=== PATIENT | male | born 1935 | race Two or more races ===

== ENCOUNTER 2017-12-04 12:11 | Inpatient (IN) | payer MEDICARE ==
[~2017-12-04] VITALS: Ht 182.9 cm; Wt 74.5 kg
--- NOTE | 2017-12-04 12:38 | NUR ---
BIBRA FROM [facility] DT ELEVATED WBC AND LOW O2 SAT. PATIENT RECEIVED AWAKE, NON VERBAL, VENT/TRACHE DEPENDENT. SATING 100% WITH VENT ORDERED AND TOLERATED. PATIENT NOTED WITH GT. PATIENT NOTED WITH GENRALIZED SWELLING. PENDING MD CERVANTES
[2017-12-04 12:43] VITALS: BP 118/54
--- NOTE | 2017-12-04 12:47 | NUR ---
PT RECEIVED TRACHED ON PORTEX [facility] FROM [facility] RT. NO SIGNS OF RESP DISTRESS OR SOB NOTED. SXN'D SMALL AMOUNT OF PALE WHITE SECRETIONS. AIRWAY PATENT AND SECURED. TOP EXECUTIVE PRESSURE CUFF NOTED. AMBUBAG AT BEDSIDE. ALARMS SET AND AUDIBLE. VENT PLUG INTO RED. Addendum: 12/04/17 at 1250 by ALEXANDREA KEITH RT Amended: Links added.
--- NOTE | 2017-12-04 12:54 | NUR ---
CALLED PHARMACY FOR SILVIA
[2017-12-04] MEDS ORDERED: VANCOMYCIN 1 GM in IV D5W 250 ML IV ONE (13:00)
[2017-12-04] MEDS ORDERED: MEROPENEM 1,000 MG in IV NS 0.9% 100 ML IV ONE (13:00)
[2017-12-04] MEDS ORDERED: IV NS 0.9% 1,000 ML IV ONE (13:00)
[2017-12-04 13:03] LABS: BASOPHILS % (AUTO) 0.2 % (0.0-2.0); EOSINOPHILS % (AUTO) 0.2 % (0.0-6.0); HEMATOCRIT 25 % (39-51); HEMOGLOBIN 8.2 g/dL (13.5-17.5); LYMPHOCYTES # (AUTO) 1.1 /CMM (0.8-4.8); LYMPHOCYTES % (AUTO) 6.4 % (20.0-44.0); MEAN CORPUSCULAR HGB CONC 33 g/dl (31.0-36.0); MEAN CORPUSCULAR VOLUME 88 fL (80-96); MONOCYTES # (AUTO) 0.8 /CMM (0.1-1.30); MONOCYTES % (AUTO) 4.6 % (2.0-12.0); NEUTROPHILS # (AUTO) 15.5 /CMM (1.8-8.9); NEUTROPHILS % (AUTO) 88.6 % (43.0-81.0); PLATELET COUNT (AUTO) 164 /CMM (150-450); RDW COEFFICIENT OF VARIATION 20.1 (11.5-15.0); RED BLOOD CELL COUNT(AUTO) 2.85 MIL/uL (4.5-6.0); WHITE BLOOD COUNT (AUTO) 17.4 K/uL (4.3-11.0)
[2017-12-04 13:07] LABS: APPEARANCE,URINE Cloudy (CLEAR); BILIRUBIN,URINE Negative (NEGATIVE); BLOOD, URINE Moderate Ery/uL (NEGATIVE); COLOR,URINE Other (YELLOW); KETONES,URINE Negative (NEGATIVE); LEUKOCYTE ESTERASE ,URINE Large (NEGATIVE); NITRITE, URINE Negative (NEGATIVE); PROTEIN,URINE 100 mg/dl (NEGATIVE); UGLUCOSE Negative (NEGATIVE); UROBILINOGEN,URINE 0.2 EU/dL (0.2)
[2017-12-04 13:25] LABS: INR 1.37 (0.87-1.13)
[2017-12-04 13:28] LABS: ALANINE AMINOTRANSFERASE 19 U/L (12-78); ALKALINE PHOSPHATASE 519 U/L (46-116); ASPARTATE AMINOTRANSFERASE 234 U/L (15-37); BILIRUBIN,DIRECT 0.4 mg/dL (0.0-0.2); BILIRUBIN,TOTAL 0.7 mg/dL (0.2-1.0); CALCIUM, SERUM 6.6 mg/dL (8.5-10.1); CARBON DIOXIDE 27 mmol/L (21-32); CHLORIDE 108 mmol/L (98-107); GLUCOSE 105 mg/dL (74-106); POTASSIUM 3.7 mmol/L (3.5-5.1); SODIUM SERUM 144 mmol/L (136-145); TOTAL PROTEIN, SERUM 6.8 g/dL (6.4-8.2); UREA NITROGEN, BLOOD 61 mg/dL (7-18)
[2017-12-04 13:31] LABS: ALBUMIN 1.2 g/dL (3.4-5.0); BACTERIA,URINE 1+ /HPF (None Seen); SQUAMOUS EPITHELIAL CELL,UR Few /HPF (None Seen); TROPONIN I < 0.017 ng/mL (0.00-0.056); WBC,URINE TOO NUMEROUS TO COUN /HPF (0-3)
[2017-12-04] MEDS ORDERED: IV NS 0.9% 500 ML IV ONE (14:00)
[2017-12-04] MEDS ORDERED: CRAN3875 GT (14:03)
[2017-12-04] MEDS ORDERED: GLUC1KIT IM (14:03)
[2017-12-04] MEDS ORDERED: CALC-494 GT (14:03)
[2017-12-04] MEDS ORDERED: DOCU50LI GT (14:03)
[2017-12-04] MEDS ORDERED: FOLI1TAB16 GT (14:03)
[2017-12-04] MEDS ORDERED: INSU100V7 SQ (14:03)
[2017-12-04] MEDS ORDERED: LEVO100T9 GT (14:03)
[2017-12-04] MEDS ORDERED: MULT-213 GT (14:03)
[2017-12-04] MEDS ORDERED: LEUP7.5S2 IM (14:03)
[2017-12-04] MEDS ORDERED: PANT40SU2 GT (14:03)
[2017-12-04] MEDS ORDERED: ASCO500T9 GT (14:03)
[2017-12-04] MEDS ORDERED: BICA50TA49 GT (14:03)
[2017-12-04] MEDS ORDERED: ACET-73 GT (14:03)
[2017-12-04] MEDS ORDERED: HYDR-4354 GT (14:03)
[2017-12-04] MEDS ORDERED: ALBU2.5V11 NEB (14:03)
[2017-12-04] MEDS ORDERED: PYRI100T6 PO (14:03)
[2017-12-04] MEDS ORDERED: ACET325T53 GT ×2 (14:03)
[2017-12-04] MEDS ORDERED: FERR220S17 GT (14:03)
[2017-12-04] MEDS ORDERED: AMIN887L GT (14:03)
[2017-12-04] MEDS ORDERED: ALBU2.5V38 IH (14:03)
[2017-12-04] MEDS ORDERED: ONDANSETRON HCL/PF 4 MG/2 ML VIAL IVP PRN ×2 (14:30→15:30)
[2017-12-04] MEDS ORDERED: ACETAMINOPHEN 650 MG/SUPP.RECT RC PRN ×2 (14:30→15:30)
[2017-12-04] MEDS ORDERED: IPRATROPIUM NEB FS 0.5 MG/2.5 ML AMPUL.NEB NEB PRN ×2 (14:30→15:30)
[2017-12-04] MEDS ORDERED: ALBUTEROL FS 2.5 MG/3 ML VIAL.NEB NEB PRN ×2 (14:30→15:30)
--- NOTE | 2017-12-04 14:38 | NUR ---
CALLED NURSE SUP FOR TELE BED - NURSE SUP WILL CALL BACK
[2017-12-04 14:52] VITALS: BP 121/50
--- NOTE | 2017-12-04 14:54 | NUR ---
FIO2 TITRATED TO 40% BY RT.
[2017-12-04] MEDS ORDERED: DEXTROSE 50%-WATER 50 ML DISP.SYRIN IV PRN (15:00)
[2017-12-04] MEDS ORDERED: HYDROCODONE/APAP 10/325MG 1 EA TABLET GT PRN (15:00)
[2017-12-04] MEDS ORDERED: ACETAMINOPHEN 325 MG TABLET MC PRN ×3 (15:00→15:30)
[2017-12-04] MEDS ORDERED: INSULIN REGULAR, HUMAN 100 UNIT/ML 3 ML VIAL SQ PRN (15:00)
[2017-12-04] MEDS ORDERED: MISCELLANEOUS MED 1 EA EA GT PRN ×2 (15:00→15:30)
--- NOTE | 2017-12-04 15:14 | NUR ---
REPORT GIVEN TO TREY MANCERA FOR CONTINUITY OF CARE.
[2017-12-04] MEDS ORDERED: ACETAMINOPHEN 650 MG/20.3 ML UDC GT PRN (16:00)
[2017-12-04] MEDS ORDERED: PYRIDOXINE HCL 50 MG TABLET GT SCH (17:00)
[2017-12-04] MEDS ORDERED: FEE PK DOSING 1 MIN EA MC ONE (17:29)
[2017-12-04] MEDS: PYRIDOXINE HCL 50 MG TABLET GT SCH (17:31)
[2017-12-04] MEDS ORDERED: BLOOD SUGAR DIAGNOSTIC 1 EACH STRIP IN SCH (18:00)
[2017-12-04] MEDS: BLOOD SUGAR DIAGNOSTIC 1 EACH STRIP IN SCH ×2 (18:04→23:39)
--- NOTE | 2017-12-04 18:30 | NUR ---
RN NOTES RELAYED REPEAT LACTIC ACID RESULT TO ALFA HICKS, PER CORPORATE COUNSEL NO NEW ORDER AT THIS TIME.
--- NOTE | 2017-12-04 18:49 | NUR ---
RN NOTES PATIENT A/OX1, ABLE TO RESPOND TO QUESTION BY NODDING,MECHANICAL VENT SETTINGS TOLERATING WELL, SKIN ASSESSMENT COMPLETED, PHOTOS TAKEN AND PLACED IN CHART. NEEDS ATTENDED AND MET, CALL LIGHT WITHIN REACH, WILL ENDORSE TO PSYCHOLOGY PROFESSOR FOR JESSE.
[2017-12-04 20:00] VITALS: BP 116/50
[2017-12-04] MEDS: GLUCERNA 1.2 1,000 ML BOTTLE NG PRN (20:05)
[2017-12-04] MEDS ORDERED: MEROPENEM 1 G in IV NS 0.9% 100 ML IV SCH (21:00)
[2017-12-05] VITALS: BP 118/59
[2017-12-05] MEDS: MEROPENEM 1 G in IV NS 0.9% 100 ML IV SCH ×2 (00:56→13:05)
--- NOTE | 2017-12-05 01:16 | NUR ---
PATIENT WAS RECEIVED TRACHED ON PORTEX 7 ON MECHANICAL VENT . NO SIGNS OF RESP DISTRESS OR SOB NOTED. SXN'D SMALL AMOUNT OF PALE WHITE SECRETIONS. AIRWAY PATENT AND SECURED. DRY CLEANER PRESSURE CUFF NOTED. AMBUBAG AT BEDSIDE. ALARMS SET AND AUDIBLE. VENT PLUG INTO RED OUTLET WILL CONTINUE TO MO.NITOR Addendum: 12/05/17 at 0118 by SUBHASH SONG RT Amended: Links added.
[2017-12-05 04:00] VITALS: BP 117/56
--- NOTE | 2017-12-05 04:00 | NUR ---
TEMP AT 100.1 COOLING MEASURES PROVIDED WILL MONITOR
[2017-12-05] MEDS: BLOOD SUGAR DIAGNOSTIC 1 EACH STRIP IN SCH ×4 (05:44→23:28)
--- NOTE | 2017-12-05 06:37 | NUR ---
PUMP OPERATOR CLOSING NOTES ASLEEP AND EASILY OPENS EYES, STABLE, NOT IN DISTRESS. O2 SAT 100%. TOLERATING VENT ORDERED. NON VERBAL. RESPIRATION EVEN AND UNLABORED. KEPT CLEAN AND DRY AND COMFORTABLE, ALL NURSING CARE RENDERED. NEEDS ATTENDED AND ANTICIPATED. REPOSITIONED EVERY 2 HOURS. GOOD SKIN CARE PROVIDED. NO FACIAL GRIMACING NOTED. ON LOW BED AT ALL TIMES TO ENSURE SAFETY. SAFE HAZARD FREE ENVIRONMENT PROVIDED. CALL LIGHT WITHIN EASY TO REACH. WILL ENDORSE NEXT SHIFT CONTINUITY OF CARE.
[2017-12-05 07:48] LABS: CALCIUM, SERUM 6.7 mg/dL (8.5-10.1); CARBON DIOXIDE 28 mmol/L (21-32); CHLORIDE 110 mmol/L (98-107); CREATININE 1.8 mg/dL (0.6-1.3); GLUCOSE 99 mg/dL (74-106); POTASSIUM 3.7 mmol/L (3.5-5.1); SODIUM SERUM 148 mmol/L (136-145); UREA NITROGEN, BLOOD 53 mg/dL (7-18)
--- NOTE | 2017-12-05 08:00 | NUR ---
MS RN RECEIVED ON BED, AWAKE,NON VERBAL PATIENT, VENT DEPENDENT PATIENT, NOTED TO HAVE ENAMORADO CATHETER W/ YELLOWISH URINE OUTPUT,G TUBE FEEDING AT 30ML / HOUR, TOLERATED WELL.
[2017-12-05] MEDS ORDERED: CALCIUM CARB 250MG /VITAMIN D 1 UDTAB GT SCH (09:00)
[2017-12-05] MEDS ORDERED: ASCORBIC ACID 500 MG TABLET GT SCH (09:00)
[2017-12-05] MEDS ORDERED: MULTIVITAMIN LIQ 5 ML UDC GT SCH (09:00)
[2017-12-05] MEDS: BICALUTAMIDE 50 MG TABLET GT SCH (09:00)
[2017-12-05] MEDS ORDERED: FOLIC ACID 1 MG TABLET GT SCH (09:00)
[2017-12-05] MEDS ORDERED: BICALUTAMIDE 50 MG TABLET GT SCH (09:00)
[2017-12-05] MEDS ORDERED: PANTOPRAZOLE 40 MG VIAL IV SCH (09:00)
[2017-12-05] MEDS ORDERED: FERROUS SULFATE UDC 300 MG/5 ML UDC GT SCH (09:00)
[2017-12-05] MEDS ORDERED: PROSOURCE / PROSTAT (PYXIS) 30 ML UDC GT SCH (09:00)
[2017-12-05] MEDS ORDERED: LEVOTHYROXINE SODIUM 100 MCG TABLET GT SCH (09:00)
[2017-12-05] MEDS ORDERED: DOCUSATE SODIUM LIQ 100 MG/10 ML UDC GT SCH (09:00)
[2017-12-05] MEDS: FOLIC ACID 1 MG TABLET GT SCH (09:36)
[2017-12-05] MEDS: PYRIDOXINE HCL 50 MG TABLET GT SCH ×3 (09:37→17:43)
[2017-12-05] MEDS: PANTOPRAZOLE 40 MG VIAL IV SCH (09:37)
[2017-12-05] MEDS: CALCIUM CARB 250MG /VITAMIN D 1 UDTAB GT SCH (09:37)
[2017-12-05] MEDS: ASCORBIC ACID 500 MG TABLET GT SCH (09:37)
[2017-12-05] MEDS: MULTIVITAMINS,THERAGRAN 1 UDTAB TABLET GT SCH (09:37)
[2017-12-05] MEDS: DOCUSATE SODIUM LIQ 100 MG/10 ML UDC GT SCH ×2 (09:37→09:47)
[2017-12-05] MEDS: LEVOTHYROXINE SODIUM 100 MCG TABLET GT SCH (09:40)
--- NOTE | 2017-12-05 09:40 | NUR ---
MS RN DUE MEDS GIVEN.TOLERATED WELL.
[2017-12-05 12:00] VITALS: BP 118/47
[2017-12-05] MEDS: VANCOMYCIN 1 GM in IV D5W 250 ML IV SCH (13:05)
--- NOTE | 2017-12-05 14:00 | NUR ---
MS RN WAS SEEN BY ZAMZAM TORRES SURGERY, WAS ABLE TO SEE WOUNDS, NO ORDER AT THIS TIME.
[2017-12-05 16:00] VITALS: BP 128/51
[2017-12-05] MEDS: FERROUS SULFATE UDC 300 MG/5 ML UDC GT SCH (17:43)
[2017-12-05] MEDS: PROSOURCE / PROSTAT (PYXIS) 30 ML UDC GT SCH (17:44)
--- NOTE | 2017-12-05 18:08 | NUR ---
RT NOTE PATIENT WAS RECEIVED ON MECHANICAL VENT WITH NOTED SETTINGS. BREATHING TX GIVEN PER MD ORDER. NO ADVERSE REACTION NOTED. SX DONE WITH MODERATE AMOUNT OF THICK YELLOW SECRETIONS. TRACH TUBE PATENT AND SECURED. MECHANICAL ENGINEERING MANAGER DONE. AMBU BAG AT BEDSIDE. VENT PLUGGED INTO RED OUTLET. ALARMS ARE ON AND AUDIBLE. WILL CONTINUE TO MONITOR
--- NOTE | 2017-12-05 18:30 | NUR ---
ms rn gt feeding rate increased to 40ml/hr w/ a goal of 80ml/hr.tolerated well.
--- NOTE | 2017-12-05 19:25 | NUR ---
HOMEMAKER COMPANION NOTES RECEIVED PT IN BED, RESTING AT THIS TIME, APPEARS COMFORTABLE. OPENS EYES, NON VERBAL . TRACH WITH VENT INTACT AND PATENT, SUCTIONED PRN. NO DISTRESS, NO SOB NOTED. RESPIRATION EVEN AND UNLABORED. KEPT CLEAN AND DRY. NEEDS ATTENDED AND ANTICIPATED. REPOSITIONED EVERY 2 HOURS. GOOD SKIN CARE PROVIDED. NO S/S OF PAIN OR DISCOMFORT NOTED. GT IS INTACT AND PATENT, WITH RESIDUAL OF 40 CC NOTED. GTF INFUSING WELL. IV SITE ON RIGHT WRIST AND LFA INTACT AND PATENT, NO INFILTRATION NOTED. FC INTACT AND PATENT , DRAINING WELL. SAFETY AND ASPIRATION PRECAUTION OBSERVED. CALL LIGHT WITHIN EASY TO REACH. WILL CONT TO MONITOR.
--- NOTE | 2017-12-05 19:28 | NUR ---
PT ON ST 105 ON TELE MONITOR.
[2017-12-05 20:00] VITALS: BP 110/54
[2017-12-05 20:10] VITALS: BP 110/54
[2017-12-05] MEDS: GLUCERNA 1.2 1,000 ML BOTTLE NG PRN (22:41)
[2017-12-05] MEDS: INSULIN REGULAR, HUMAN 100 UNIT/ML 3 ML VIAL SQ PRN (23:33)
[2017-12-06 00:39] VITALS: BP 114/48
[2017-12-06] MEDS: MEROPENEM 1 G in IV NS 0.9% 100 ML IV SCH ×2 (01:48→12:44)
[2017-12-06 04:00] VITALS: BP 114/53
[2017-12-06] MEDS: BLOOD SUGAR DIAGNOSTIC 1 EACH STRIP IN SCH ×3 (05:44→18:38)
--- NOTE | 2017-12-06 06:34 | NUR ---
wound tx : medi honey not available at this time.
--- NOTE | 2017-12-06 06:50 | NUR ---
WATCH ASSEMBLY INSTRUCTOR CLOSING NOTES PT IN BED, RESTING AT THIS TIME, APPEARS COMFORTABLE. OPENS EYES, NON VERBAL . TRACH WITH VENT INTACT AND PATENT, SUCTIONED PRN. NO DISTRESS, NO SOB NOTED. RESPIRATION EVEN AND UNLABORED. KEPT CLEAN AND DRY. NEEDS ATTENDED AND ANTICIPATED. REPOSITIONED EVERY 2 HOURS. GOOD SKIN CARE PROVIDED. NO S/S OF PAIN OR DISCOMFORT NOTED. GT IS INTACT AND PATENT, GTF MIKE WELL. IV SITE ON RIGHT WRIST AND LFA INTACT AND PATENT, NO INFILTRATION NOTED. FC INTACT AND PATENT , DRAINING WELL. SAFETY AND ASPIRATION PRECAUTION OBSERVED. CALL LIGHT WITHIN EASY TO REACH. RECEIVED A CALL FROM PT SON'S ( GERRI ) WITH REQUEST TO INFORM HIM IF THERE'S ANY PROCEDURE THAT NEEDS TO BE DONE TO THE PT, CHARGE NURSE MADE AWARE, AND WILL ENDORSE TO NEXT SHIFT ACCORDINGLY. ALL NEEDS ANTICIPATED AND ATTENDED. CALL LIGHT WITHIN REACH. WILL CONT TO MONITOR.
--- NOTE | 2017-12-06 07:00 | NUR ---
PERFORATOR CLOSING NOTES PATIENT IN BED, LYING IN BED, HOB ELEVATED, APPEARS COMFORTABLE. OPENS EYES, NON VERBAL . TRACH WITH VENT INTACT AND PATENT. NO DISTRESS, NO SOB NOTED. RESPIRATION EVEN AND UNLABORED. NO S/S OF PAIN OR DISCOMFORT NOTED. GT IS INTACT AND PATENT, GTF TOLERATING WELL. IV ACCESS PATENT AND INTACT, NO REDNESS OR SWELLING NOTED. ENAMORADO CATHETER INTACT AND PATENT , DRAINING WELL. SAFETY AND ASPIRATION PRECAUTION OBSERVED. CALL LIGHT WITHIN EASY TO REACH. SAFETY MEASURE IN PLACE. CALL LIGHT WITHIN REACH. WILL CONTINUE TO MONITOR ACCORDINGLY.
[2017-12-06 07:33] LABS: CALCIUM, SERUM 6.7 mg/dL (8.5-10.1); CARBON DIOXIDE 27 mmol/L (21-32); CHLORIDE 111 mmol/L (98-107); CREATININE 1.7 mg/dL (0.6-1.3); GLUCOSE 136 mg/dL (74-106); POTASSIUM 3.6 mmol/L (3.5-5.1); SODIUM SERUM 149 mmol/L (136-145); UREA NITROGEN, BLOOD 59 mg/dL (7-18)
[2017-12-06 08:00] VITALS: BP 116/50
[2017-12-06] MEDS: LEVOTHYROXINE SODIUM 100 MCG TABLET GT SCH (08:29)
[2017-12-06] MEDS: FOLIC ACID 1 MG TABLET GT SCH (08:30)
[2017-12-06] MEDS: MULTIVITAMINS,THERAGRAN 1 UDTAB TABLET GT SCH (08:30)
[2017-12-06] MEDS: PANTOPRAZOLE 40 MG VIAL IV SCH (08:30)
[2017-12-06] MEDS: ASCORBIC ACID 500 MG TABLET GT SCH (08:30)
[2017-12-06] MEDS: CALCIUM CARB 250MG /VITAMIN D 1 UDTAB GT SCH (08:30)
[2017-12-06] MEDS: FERROUS SULFATE UDC 300 MG/5 ML UDC GT SCH (08:30)
[2017-12-06] MEDS: PROSOURCE / PROSTAT (PYXIS) 30 ML UDC GT SCH (08:31)
[2017-12-06] MEDS: PYRIDOXINE HCL 50 MG TABLET GT SCH ×3 (08:31→17:43)
[2017-12-06] MEDS: BICALUTAMIDE 50 MG TABLET GT SCH (09:18)
--- NOTE | 2017-12-06 11:00 | NUR ---
SILVERER NOTES DR LEÓN MADE AWARE OF THE CHEST XRAY RESULT,NO NEW ORDERS MADE AT THIS TIME.
--- NOTE | 2017-12-06 11:04 | NUR ---
WOUND CARE CONSULT: PT PRESENTS WITH UNSTAGEABLE SACRAL ULCER AND PENIS WOUND, PRESENT ON ADMISSION. PT FOLLOWED BY SURGICAL TEAM FOR WOUNDS. DEFER TO SURGICAL TEAM FOR WOUND TREATMENT PLAN. PT ON FIRST STEP CIRRUS LOW AIRLOSS MATTRESS. ALL SKIN PROTECTION MEASURES IN PLACE AND DISCUSSED WITH NURSING STAFF. WILL SEE PRN. MILLIGAN IN AGREEMENT WITH PLAN OF CARE.
[2017-12-06 12:00] VITALS: BP 114/47
[2017-12-06] MEDS: INSULIN REGULAR, HUMAN 100 UNIT/ML 3 ML VIAL SQ PRN (12:18)
[2017-12-06] MEDS: THERAHONEY GEL 1.5 OZ TUBE TP SCH (13:09)
[2017-12-06] MEDS: Z GUARD REMEDY 2 OZ OINT TP SCH (13:10)
[2017-12-06 13:14] LABS: HEMATOCRIT 24 % (39-51); HEMOGLOBIN 7.3 g/dL (13.5-17.5); MEAN CORPUSCULAR HGB CONC 30 g/dl (31.0-36.0); MEAN CORPUSCULAR VOLUME 92 fL (80-96); PLATELET COUNT (AUTO) 126 /CMM (150-450); RDW COEFFICIENT OF VARIATION 23.5 (11.5-15.0); RED BLOOD CELL COUNT(AUTO) 2.65 MIL/uL (4.5-6.0); WHITE BLOOD COUNT (AUTO) 16.6 K/uL (4.3-11.0)
[2017-12-06] MEDS: VANCOMYCIN 1 GM in IV D5W 250 ML IV SCH (13:26)
[2017-12-06] MEDS ORDERED: BUMETANIDE INJ 4 MG in IV D5W 24 ML IV ONE (13:30)
[2017-12-06 13:43] LABS: BAND % (MANUAL) 5 % (0.0-5.0); LYMPHOCYTES % (MANUAL) 10 % (16-48); MONOCYTES % (MANUAL) 4 % (0-11.0); NEUTROPHILS % (MANUAL) 81 (42-76)
[2017-12-06 14:52] LABS: ABG BASE EXCESS 0.7 mmol/L; ABG OXYGEN SATURATION 91.9 % (92.0-98.5); ABG PCO2 50.6 mmHg (35.0-45.0); ABG PO2 70.4 mmHg (75.0-100.0); AaDO2 156.6 mmHg; COHb 0.1 % (0.5-1.5); MetHb 0.9 % (0.0-1.5); PEEP,BG 5 cm H2O; SITE, ABG Right Radial; VT, ABG 480 mL
[2017-12-06 16:00] VITALS: BP 111/50
--- NOTE | 2017-12-06 19:00 | NUR ---
HR DIRECTOR CLOSING NOTES PATIENT IN BED, LYING IN BED, HOB ELEVATED, APPEARS COMFORTABLE. OPENS EYES, NON VERBAL . TRACH WITH VENT INTACT AND PATENT. NO DISTRESS, NO SOB NOTED. RESPIRATION EVEN AND UNLABORED. NO S/S OF PAIN OR DISCOMFORT NOTED. GT IS INTACT AND PATENT, GTF TOLERATING WELL. IV ACCESS PATENT AND INTACT, NO REDNESS OR SWELLING NOTED. ENAMORADO CATHETER INTACT AND PATENT , DRAINING WELL.DUE MEDICATIONS GIVEN, NO ASE NOTED. NEEDS ATTENDED AND ANTICIPATED. SAFETY AND ASPIRATION PRECAUTION OBSERVED. CALL LIGHT WITHIN EASY TO REACH. SAFETY MEASURE IN PLACE. CALL LIGHT WITHIN REACH. DR LEÓN REQUESTING RECENT CHEST XRAY FROM [facility], CALLED AND SPOKE WITH BARBARA NO RECENT CXR AVAILABLE. ENDORSED TO NIGHT NURSE FOR CONTINUITY OF CARE.
--- NOTE | 2017-12-06 19:05 | NUR ---
BASIC SCIENCES PROFESSOR NOTES RECEIVED PT IN BED, RESTING AT THIS TIME, APPEARS COMFORTABLE, AROUSABLE, OPENS EYES AND MAKES EYE CONTACT. NON VERBAL . TRACH WITH VENT INTACT AND PATENT, SUCTIONED PRN. NO DISTRESS, NO SOB NOTED. RESPIRATION IS EVEN AND UNLABORED. KEPT CLEAN AND DRY. NEEDS ATTENDED AND ANTICIPATED. GOOD SKIN CARE PROVIDED. NO S/S OF PAIN OR DISCOMFORT NOTED. GT IS INTACT AND PATENT, GTF MIKE WELL. IV SITE ON RIGHT WRIST AND LFA INTACT AND PATENT, NO INFILTRATION NOTED. FC INTACT AND PATENT , DRAINING WELL. SAFETY AND ASPIRATION PRECAUTION OBSERVED. CALL LIGHT WITHIN EASY TO REACH. WILL CONT TO MONITOR.
--- NOTE | 2017-12-06 19:15 | NUR ---
PT ON SR 95 ON TELE MONITOR.
[2017-12-06 20:00] VITALS: BP 122/58
--- NOTE | 2017-12-06 21:48 | NUR ---
PATIENT WAS RECEIVED ON MECHANICAL VENT WITH NOTED SETTINGS. SUCTION DONE WITH A SMALL AMOUNT OF THIN YELLOW SECRETIONS. TRACH TUBE PATENT AND SECURED. RECEPTIONIST SECRETARY DONE. AMBU BAG AT BEDSIDE. VENT PLUGGED INTO RED OUTLET. ALARMS ARE ON AND AUDIBLE. WILL CONTINUE TO MONITOR Addendum: 12/06/17 at 2158 by SUBHASH SONG RT Amended: Links added.
[2017-12-06] MEDS: GLUCERNA 1.2 1,000 ML BOTTLE NG PRN (22:54)
[2017-12-07] VITALS: BP 122/47
[2017-12-07] MEDS: BLOOD SUGAR DIAGNOSTIC 1 EACH STRIP IN SCH ×4 (00:16→17:11)
[2017-12-07] MEDS: MEROPENEM 1 G in IV NS 0.9% 100 ML IV SCH ×2 (00:25→13:38)
[2017-12-07 04:00] VITALS: BP 115/53
[2017-12-07] MEDS: INSULIN REGULAR, HUMAN 100 UNIT/ML 3 ML VIAL SQ PRN ×3 (06:26→17:11)
--- NOTE | 2017-12-07 06:30 | NUR ---
DOUGH SCALER AND MIXER CLOSING NOTES PT IN BED, RESTING AT THIS TIME, APPEARS COMFORTABLE, AROUSABLE, NON VERBAL . TRACH WITH VENT INTACT AND PATENT, SUCTIONED PRN. NO DISTRESS, NO SOB NOTED. RESPIRATION IS EVEN AND UNLABORED. KEPT CLEAN AND DRY. NEEDS ATTENDED AND ANTICIPATED. GOOD SKIN CARE PROVIDED. NO S/S OF PAIN OR DISCOMFORT NOTED. GT IS INTACT AND PATENT, GTF MIKE WELL. IV SITE ON RIGHT WRIST AND LFA INTACT AND PATENT, NO INFILTRATION NOTED. FC INTACT AND PATENT , DRAINING WELL. SAFETY AND ASPIRATION PRECAUTION OBSERVED. WOUND TX DONE ORDERED. CALL LIGHT WITHIN EASY TO REACH. WILL ENDORSE TO NEXT SHIFT ACCORDINGLY FOR JESSE
--- NOTE | 2017-12-07 07:05 | NUR ---
MARKETING OFFICER CLOSING NOTES PATIENT LYING IN BED, HOB ELEVATED, APPEARS COMFORTABLE. OPENS EYES, NODS HEAD TO ANSWER. NON VERBAL . TRACH WITH VENT INTACT AND PATENT. NO ACUTE DISTRESS NOTED, NO SOB NOTED. RESPIRATION EVEN AND UNLABORED. NO S/S OF PAIN OR DISCOMFORT NOTED. GT IS INTACT AND PATENT, GTF TOLERATING WELL. IV ACCESS PATENT AND INTACT, NO REDNESS OR SWELLING NOTED. ENAMORADO CATHETER INTACT AND PATENT , DRAINING WELL. SAFETY AND ASPIRATION PRECAUTION OBSERVED. CALL LIGHT WITHIN REACH. CALL LIGHT WITHIN REACH. WILL CONTINUE TO MONITOR ACCORDINGLY.
[2017-12-07 08:00] VITALS: BP 145/57
[2017-12-07] MEDS: MULTIVITAMINS,THERAGRAN 1 UDTAB TABLET GT SCH (08:24)
[2017-12-07] MEDS: LEVOTHYROXINE SODIUM 100 MCG TABLET GT SCH (08:24)
[2017-12-07] MEDS: ASCORBIC ACID 500 MG TABLET GT SCH (08:24)
[2017-12-07] MEDS: BICALUTAMIDE 50 MG TABLET GT SCH (08:24)
[2017-12-07] MEDS: CALCIUM CARB 250MG /VITAMIN D 1 UDTAB GT SCH (08:24)
[2017-12-07] MEDS: DOCUSATE SODIUM LIQ 100 MG/10 ML UDC GT SCH (08:24)
[2017-12-07] MEDS: PYRIDOXINE HCL 50 MG TABLET GT SCH ×3 (08:24→16:30)
[2017-12-07] MEDS: FOLIC ACID 1 MG TABLET GT SCH (08:24)
[2017-12-07] MEDS: PANTOPRAZOLE 40 MG VIAL IV SCH (08:24)
[2017-12-07] MEDS: Z GUARD REMEDY 2 OZ OINT TP SCH (08:25)
[2017-12-07] MEDS: THERAHONEY GEL 1.5 OZ TUBE TP SCH (08:25)
[2017-12-07] MEDS: PROSOURCE / PROSTAT (PYXIS) 30 ML UDC GT SCH (08:26)
[2017-12-07 08:33] LABS: HEMATOCRIT 23 % (39-51); HEMOGLOBIN 7.3 g/dL (13.5-17.5); MEAN CORPUSCULAR HGB CONC 31 g/dl (31.0-36.0); MEAN CORPUSCULAR VOLUME 91 fL (80-96); PLATELET COUNT (AUTO) 126 /CMM (150-450); RDW COEFFICIENT OF VARIATION 23.5 (11.5-15.0); RED BLOOD CELL COUNT(AUTO) 2.55 MIL/uL (4.5-6.0); WHITE BLOOD COUNT (AUTO) 16.6 K/uL (4.3-11.0)
[2017-12-07 08:34] LABS: CARBON DIOXIDE 26 mmol/L (21-32); CHLORIDE 111 mmol/L (98-107); CREATININE 1.7 mg/dL (0.6-1.3); GLUCOSE 141 mg/dL (74-106); POTASSIUM 3.1 mmol/L (3.5-5.1); SODIUM SERUM 150 mmol/L (136-145); UREA NITROGEN, BLOOD 60 mg/dL (7-18)
[2017-12-07] MEDS: FERROUS SULFATE UDC 300 MG/5 ML UDC GT SCH (09:02)
[2017-12-07 09:08] LABS: THYROID STIMULATING HORMONE 23.136 uIU/mL (0.358-3.74)
[2017-12-07 09:20] LABS: BAND % (MANUAL) 1 % (0.0-5.0); EOSINOPHILS % (MANUAL) 2 % (0-4); LYMPHOCYTES % (MANUAL) 6 % (16-48); MONOCYTES % (MANUAL) 6 % (0-11.0); NEUTROPHILS % (MANUAL) 85 (42-76)
[2017-12-07] MEDS ORDERED: POTASSIUM CHLORIDE 20 MEQ POWDER PACKET GT SCH (11:30)
[2017-12-07 11:38] LABS: ABG BASE EXCESS -0.3 mmol/L; ABG OXYGEN SATURATION 81.2 % (92.0-98.5); ABG PCO2 44.4 mmHg (35.0-45.0); ABG PO2 51.3 mmHg (75.0-100.0); AaDO2 182.8 mmHg; COHb 0.1 % (0.5-1.5); MetHb 0.8 % (0.0-1.5); O2Hb 80.5 % (94.0-97.0); PEEP,BG 5 cm H2O; SITE, ABG Left Radial; VT, ABG 550 mL
--- NOTE | 2017-12-07 11:42 | NUR ---
ELECTRIC ORGAN ASSEMBLER NOTES RECEIVED ABG RESULT , NOTIFIED MELISSA HICKS WITH ORDERS TO TRANSFER [facility], NOTED AND CARRIED OUT.
--- NOTE | 2017-12-07 11:42 | NUR ---
KNITTING MACHINE OPERATOR AUTOMATIC NOTES PATIENT DESATURATING TO 85-87% NOTIFIED RT, RT CAME DEEP SUCTIONIONING DONE. NOTIFIED AUTHORIZATION REP ALFA HICKS ORDERED STAT ABG, NOTED AND CARRIED OUT.
--- NOTE | 2017-12-07 11:59 | NUR ---
BRIQUETTE OPERATOR NOTES PATIENT TRANSFER TO [facility], RT PAUL PRESENT, ACLS PROTOCOL OBSERVED. PATIENT PLACED ON INSURANCE CLAIMS SUPERVISOR. REPORT GIVEN TO GIOVANNY YANG. CONTINUE WITH VENT/TRACH. CONTINUE GTF TOLERATED PER ORDER. ENAMORADO CATHETER IN PLACE. PER ALFA HICKS NP HE WILL CONTACT SON. PATIENT REMAINS IN STABLE CONDITION DURING TRANSFER.
--- NOTE | 2017-12-07 12:00 | NUR ---
[facility] RN NOTES RECEIVED PT FROM [facility] , ALERT/ NON VERBAL ,OEPNS EYS TO VERBAL STIMULI , TRACH CARE DONE, RESPIRATION EVEN AND UNLABORED, NO SOB NOTED AT THIS TIME , VENT/ TRACH DEPENDENT, TOLEAING VENT SETTING WELL AT THIS TIME, NO S/S OF PAIN OR DISCOMFORT NOTED.TF RESTARTED . HOB ELEVATED, IV ACCESS PATENT AND INTACT, NO REDNESS OR SWELLING NOTED. ENAMORADO CATHETER DRAINING TO GRAVITY. CALL LIGHT WITHIN REACH. BED LOCKED AND IN LOWEST POSITION, CALL LIGHT WITHIN REACH. WILL CONTINUE TO MONITOR [place] .
[2017-12-07 12:48] VITALS: BP 135/56
[2017-12-07] MEDS ORDERED: BUMETANIDE INJ 4 MG in IV NS 0.9% 24 ML IV ONE (13:30)
[2017-12-07] MEDS: VANCOMYCIN 1 GM in IV D5W 250 ML IV SCH (14:07)
[2017-12-07 16:00] VITALS: BP_SYST 129; BP_DIAS 52; BP_DIAS 53
--- NOTE | 2017-12-07 20:00 | NUR ---
RN INITIAL NOTES RECEIVED PT IN BED, NON VERBAL . TRACH WITH VENT INTACT AND PATENT. NO DISTRESS, NO SOB NOTED. RESPIRATION IS EVEN AND UNLABORED. KEPT CLEAN AND DRY. NO S/S OF PAIN OR DISCOMFORT NOTED. GT IS INTACT AND PATENT WITH. IV SITE ON RIGHT WRIST AND LFA INTACT AND PATENT, NO INFILTRATION NOTED. FC INTACT AND PATENT , DRAINING WELL. SAFETY AND ASPIRATION PRECAUTION OBSERVED. CALL LIGHT WITHIN EASY TO REACH. WILL CONT TO MONITOR.
[2017-12-07 21:00] VITALS: BP 132/60
--- NOTE | 2017-12-07 21:11 | NUR ---
PT RCVD TRACH'D ON MECHANICAL VENT WITH CHARTED SETTINGS. PT TOLERATING SETTINGS WELL AT THIS TIME. SX DONE. PT TRACH PATENT AND SECURE. AMBU BAG AT BEDSIDE. VENT PLUGGED INTO RED OUTLET. ALARMS ARE ON AND AUDIBLE. WILL CONTINUE TO MONITOR. Addendum: 12/07/17 at 2112 by JAROD PABLO RT Amended: Links added.
[2017-12-08] VITALS (7 sets, daily range): BP systolic 113–125; BP diastolic 32–57
[2017-12-08] MEDS: MEROPENEM 1 G in IV NS 0.9% 100 ML IV SCH ×2 (00:23→12:57)
[2017-12-08] MEDS: BLOOD SUGAR DIAGNOSTIC 1 EACH STRIP IN SCH ×4 (00:28→17:17)
--- NOTE | 2017-12-08 08:00 | NUR ---
[facility] RN NOTE RECEIVED PATIENT IN BED WITH TRACH TO VENT SETTING ORDERED. NO SHORTNESS OF BREATH NOTED AT THI TIME . ON TELE MONITOR .SINUS TACHY HR 111 ,WITH F/C TO GRAVITY PATIENT HAS A G-TUBE NOTED ,NO RESIDUAL NOTED ,HEAD OF BED ELEVATED, BED IN LOW AND LOCKED POSITION BOTH HANDS WITH EDEMA KEEP ELEVATED TOLERATED
[2017-12-08] MEDS: BICALUTAMIDE 50 MG TABLET GT SCH (08:41)
[2017-12-08] MEDS: MULTIVITAMINS,THERAGRAN 1 UDTAB TABLET GT SCH (08:42)
[2017-12-08] MEDS: ASCORBIC ACID 500 MG TABLET GT SCH (08:42)
[2017-12-08] MEDS: PYRIDOXINE HCL 50 MG TABLET GT SCH ×3 (08:42→16:23)
[2017-12-08] MEDS: FOLIC ACID 1 MG TABLET GT SCH (08:42)
[2017-12-08] MEDS: CALCIUM CARB 250MG /VITAMIN D 1 UDTAB GT SCH (08:42)
[2017-12-08] MEDS: PROSOURCE / PROSTAT (PYXIS) 30 ML UDC GT SCH (08:43)
[2017-12-08] MEDS: DOCUSATE SODIUM LIQ 100 MG/10 ML UDC GT SCH (08:43)
[2017-12-08] MEDS: FERROUS SULFATE UDC 300 MG/5 ML UDC GT SCH (08:43)
[2017-12-08] MEDS: PANTOPRAZOLE 40 MG VIAL IV SCH (08:43)
[2017-12-08] MEDS: Z GUARD REMEDY 2 OZ OINT TP SCH (08:44)
[2017-12-08] MEDS: THERAHONEY GEL 1.5 OZ TUBE TP SCH (08:45)
[2017-12-08] MEDS: LEVOTHYROXINE SODIUM 100 MCG TABLET GT SCH (08:55)
[2017-12-08 10:03] LABS: BASOPHILS % (AUTO) 0.3 % (0.0-2.0); EOSINOPHILS % (AUTO) 0.4 % (0.0-6.0); HEMATOCRIT 23 % (39-51); LYMPHOCYTES # (AUTO) 2.3 /CMM (0.8-4.8); LYMPHOCYTES % (AUTO) 14.1 % (20.0-44.0); MEAN CORPUSCULAR HGB CONC 31 g/dl (31.0-36.0); MEAN CORPUSCULAR VOLUME 90 fL (80-96); MONOCYTES # (AUTO) 1.3 /CMM (0.1-1.30); MONOCYTES % (AUTO) 7.9 % (2.0-12.0); NEUTROPHILS # (AUTO) 12.7 /CMM (1.8-8.9); NEUTROPHILS % (AUTO) 77.3 % (43.0-81.0); PLATELET COUNT (AUTO) 143 /CMM (150-450); RDW COEFFICIENT OF VARIATION 23.5 (11.5-15.0); RED BLOOD CELL COUNT(AUTO) 2.54 MIL/uL (4.5-6.0); WHITE BLOOD COUNT (AUTO) 16.4 K/uL (4.3-11.0)
[2017-12-08 10:10] LABS: CALCIUM, SERUM 6.8 mg/dL (8.5-10.1); CARBON DIOXIDE 27 mmol/L (21-32); CHLORIDE 113 mmol/L (98-107); CREATININE 1.7 mg/dL (0.6-1.3); GLUCOSE 145 mg/dL (74-106); MAGNESIUM 1.6 mg/dL (1.8-2.4); PHOSPHORUS 4.7 mg/dL (2.5-4.9); POTASSIUM 3.3 mmol/L (3.5-5.1); SODIUM SERUM 151 mmol/L (136-145); UREA NITROGEN, BLOOD 61 mg/dL (7-18)
--- NOTE | 2017-12-08 10:39 | NUR ---
[facility] YANG NNOTE SPOKE WITH ALFA YANG GENERATOR OPERATOR STRAIGHT BEVEL GEAR NOTIFIED PER LAB HG 7.0 NO NEW ORDER AT THIS TIME ,WILL F\U
[2017-12-08 11:10] LABS: BAND % (MANUAL) 4 % (0.0-5.0); LYMPHOCYTES % (MANUAL) 13 % (16-48); MONOCYTES % (MANUAL) 8 % (0-11.0); NEUTROPHILS % (MANUAL) 75 (42-76)
--- NOTE | 2017-12-08 12:00 | NUR ---
[facility] RN NOTE ALL NEEDS ATTENDED, CONT ON G TUB FEEDING AND TRACH SETTING WILL F\U
[2017-12-08] MEDS: INSULIN REGULAR, HUMAN 100 UNIT/ML 3 ML VIAL SQ PRN ×2 (12:41→17:16)
[2017-12-08] MEDS: VANCOMYCIN 1 GM in IV D5W 250 ML IV SCH (13:52)
--- NOTE | 2017-12-08 15:00 | NUR ---
[facility] RN NOTE TRACH CARE DONE, SUCTION DONE , RT AT BEDSIDE, WILL CONT TO MONITOR CLOSELY
[2017-12-08] MEDS: GLUCERNA 1.2 1,000 ML BOTTLE NG PRN (15:17)
--- NOTE | 2017-12-08 18:15 | NUR ---
SIGNALS COLLECTOR/ANALYST NOTE ALL NEEDS ATTENDED, KEEP HOB ELEVATED AT ALL TIME. ON G TUBE FEEDING ORDERED TOLERATED WELL. WITH ENAMORADO CATH TO GRAVITY .WILL CONT TO MONITOR CLOSELY
--- NOTE | 2017-12-08 19:15 | NUR ---
[facility] RN NOTE SPOKE WITH ALFA NOTIFIED THAT MG 1.6 K 3.3 NO NEW ORDER GIVEN
--- NOTE | 2017-12-08 19:58 | NUR ---
[facility]D [facility]. NO RESP DISTRESS OR SOB NOTED. SX'D FOR THICK MOD AMT OF YELLOW SECRETIONS. TRACH PATENT AND SECURED. ALARMS ARE SET AND AUDIBLE. VENT PLUGGED INTO RED OUTLET. AMBU BAG BEDSIDE. WILL CONTINUE TO MONITOR. Addendum: 12/08/17 at 2020 by JEFERSON ELLSWORTH RT Amended: Links added.
[2017-12-09] VITALS (13 sets, daily range): BP systolic 92–117; BP diastolic 33–52
[2017-12-09] MEDS: BLOOD SUGAR DIAGNOSTIC 1 EACH STRIP IN SCH ×4 (00:32→17:00)
[2017-12-09] MEDS: MEROPENEM 1 G in IV NS 0.9% 100 ML IV SCH ×2 (00:39→12:00)
[2017-12-09] MEDS: INSULIN REGULAR, HUMAN 100 UNIT/ML 3 ML VIAL SQ PRN ×3 (05:22→17:00)
[2017-12-09 06:17] LABS: BASOPHILS % (AUTO) 0.2 % (0.0-2.0); EOSINOPHILS % (AUTO) 0.2 % (0.0-6.0); HEMATOCRIT 22 % (39-51); LYMPHOCYTES # (AUTO) 2.7 /CMM (0.8-4.8); LYMPHOCYTES % (AUTO) 17.3 % (20.0-44.0); MEAN CORPUSCULAR HGB CONC 31 g/dl (31.0-36.0); MEAN CORPUSCULAR VOLUME 90 fL (80-96); MONOCYTES # (AUTO) 1.4 /CMM (0.1-1.30); MONOCYTES % (AUTO) 8.7 % (2.0-12.0); NEUTROPHILS # (AUTO) 11.7 /CMM (1.8-8.9); NEUTROPHILS % (AUTO) 73.6 % (43.0-81.0); PLATELET COUNT (AUTO) 139 /CMM (150-450); RDW COEFFICIENT OF VARIATION 23.4 (11.5-15.0); RED BLOOD CELL COUNT(AUTO) 2.42 MIL/uL (4.5-6.0); WHITE BLOOD COUNT (AUTO) 15.9 K/uL (4.3-11.0)
[2017-12-09 06:26] LABS: HEMOGLOBIN 6.8 g/dL (13.5-17.5)
[2017-12-09 06:45] LABS: CALCIUM, SERUM 6.3 mg/dL (8.5-10.1); CARBON DIOXIDE 27 mmol/L (21-32); CHLORIDE 114 mmol/L (98-107); CREATININE 1.5 mg/dL (0.6-1.3); GLUCOSE 144 mg/dL (74-106); SODIUM SERUM 153 mmol/L (136-145); UREA NITROGEN, BLOOD 60 mg/dL (7-18)
--- NOTE | 2017-12-09 06:45 | NUR ---
MD HARPER AWARE OF HEMOGLOBIN LEVEL 6.8, WITH NO NEW ORDERS .
[2017-12-09 07:01] LABS: LYMPHOCYTES % (MANUAL) 16 % (16-48); MONOCYTES % (MANUAL) 8 % (0-11.0); NEUTROPHILS % (MANUAL) 76 (42-76)
--- NOTE | 2017-12-09 07:05 | NUR ---
Received male rufina pt on mechanical vent. Pt portex 7 trach is secure. Vent is plugged into a red outlet, alarms are set and audible, and BMV is at bedside. Addendum: 12/09/17 at 0734 by ALONZO ANAND RT Amended: Links added.
--- NOTE | 2017-12-09 07:10 | NUR ---
[facility] RN OPENING NOTES RECEIVED PT ON BED WITH TRACH TO VENT SETTINGS.NON VERBAL .NO SOB AND ACUTE DISTRESS NOTED AT THIS TIME.ON TELE WITH HR 100'S SINUS TACHYCARDIA.ENAMORADO CATHETER IS IN PLACE.G TUBE IS IN PLACE AND NO RESIDUAL NOTED.IV LINE IS ON LEFT FA G22 AND ON RIGHT WRIST G18,SITE IS CLEAN,DRY AND INTACT.BED IS IN LOW POSITION AND LOCKED.CALL LIGHT IS WITH IN REACH.WILL CONTINUE TO MONITOR THE PT CLOSELY.
[2017-12-09] MEDS: PANTOPRAZOLE 40 MG VIAL IV SCH (08:26)
[2017-12-09] MEDS: BICALUTAMIDE 50 MG TABLET GT SCH (08:27)
[2017-12-09] MEDS: FOLIC ACID 1 MG TABLET GT SCH (08:28)
[2017-12-09] MEDS: LEVOTHYROXINE SODIUM 100 MCG TABLET GT SCH (08:28)
[2017-12-09] MEDS: CALCIUM CARB 250MG /VITAMIN D 1 UDTAB GT SCH (08:29)
[2017-12-09] MEDS: MULTIVITAMINS,THERAGRAN 1 UDTAB TABLET GT SCH (08:29)
[2017-12-09] MEDS: FERROUS SULFATE UDC 300 MG/5 ML UDC GT SCH (08:30)
[2017-12-09] MEDS: ASCORBIC ACID 500 MG TABLET GT SCH (08:30)
[2017-12-09] MEDS: PYRIDOXINE HCL 50 MG TABLET GT SCH ×3 (08:30→16:55)
[2017-12-09] MEDS: PROSOURCE / PROSTAT (PYXIS) 30 ML UDC GT SCH (08:31)
[2017-12-09] MEDS: DOCUSATE SODIUM LIQ 100 MG/10 ML UDC GT SCH (08:31)
[2017-12-09] MEDS: Z GUARD REMEDY 2 OZ OINT TP SCH (08:32)
[2017-12-09] MEDS: THERAHONEY GEL 1.5 OZ TUBE TP SCH (08:33)
[2017-12-09] MEDS ORDERED: POTASSIUM CHLORIDE 20 MEQ POWDER PACKET GT SCH (10:30)
--- NOTE | 2017-12-09 11:01 | NUR ---
YESSENIA was informed by family preservation caseworker Nolvia that MELISSA Rahman would like a bioethics scheduled with Pt's son Darin. YESSENIA contacted Darin in regards to scheduling a bioethics meeting. Darin informed SW he will be available via phone since he already know's what the discussion is about since he has had many. YESSENIA informed him she will call back to confirm the time. YESSENIA contacted Dr. Workman and MELISSA Rahman who are available at 4:30PM for a phone bioethics conference with pt's son Darin. YESSENIA contacted Darin and confirmed the meeting for 4:30PM via phone.
[2017-12-09] MEDS: VANCOMYCIN 1 GM in IV D5W 250 ML IV SCH (13:07)
--- NOTE | 2017-12-09 14:55 | NUR ---
LEGAL SUPPORT ANALYST NOTES HGB IS 6.8.JEWEL OLIVING MACHINE OPERATOR ALFA HICKS ORDERED TO GIVE 1 INIT OF PRBC.STARTED THE BLOOD TRANSFUSION.CHECKED THE VITAL SIGNS PRIOR TO DO THE BLOOD TRANSFUSIONS.IT IS WNL.NO COMPLICATIONS NOTED.STARTED THE BLOOD TRANSFUSION.
--- NOTE | 2017-12-09 18:40 | NUR ---
APPLICATION ARCHITECT MANAGER NOTES BLOOD TRANSFUSION IS DONE.VITAL SIGNS ARE WNL.NO COMPLICATIONS NOTED.PT TOLERATED WELL.
--- NOTE | 2017-12-09 18:42 | NUR ---
VICE PRESIDENT OF MARKETING CLOSING NOTES PT IS ON BED.ALERT AND ORIENTED [id number] TRANSFUSION WITH 1 UNIT OF PRBC GIVEN.PT TOLERATED WELL.NO COMPLICATIONS NOTED.NO SOB AND ACUTE DISTRESS NOTED. Addendum: 12/09/17 at 1846 by JESE MALLORY RN NONVERBAL.ENAMORADO CATHETER IS IN PLACE.WILL ENDORSE TO RIB CUTTER RN FOR CONTINUITY OF CARE.
[2017-12-09] MEDS: GLUCERNA 1.2 1,000 ML BOTTLE NG PRN (21:25)
[2017-12-09] MEDS: HYDROCODONE/APAP 10/325MG 1 EA TABLET GT PRN (21:48)
[2017-12-10] VITALS (9 sets, daily range): BP systolic 102–143; BP diastolic 45–54
[2017-12-10] MEDS: BLOOD SUGAR DIAGNOSTIC 1 EACH STRIP IN SCH ×4 (00:15→17:03)
[2017-12-10] MEDS: MEROPENEM 1 G in IV NS 0.9% 100 ML IV SCH ×2 (00:16→12:14)
--- NOTE | 2017-12-10 07:00 | NUR ---
RN NOTES RECEIVED PT ON BED, VENT/ TRACH DEPENDENT, NONVERBAL , TRACH SUCTIONING DONE, NO SOB NOTED, ON TELE ST HR IN 100'S , ENAMORADO DRAINING TO GRAVITY , GLUCERNA AT 30CC/HR RUNNING VIA GT , NO RESIDUAL NOTED, LEFT FA IV G 22 AND R WRIST IV G 18 SITES CLEAN , DRY AND INTACT, SR UP x3, CALL LIGHT WITHIN EASY REACH, BED LOCKED AND IN LOWEST POSITION, CONTINUE TO MONITOR .
[2017-12-10 07:29] LABS: CALCIUM, SERUM 6.5 mg/dL (8.5-10.1); CARBON DIOXIDE 26 mmol/L (21-32); CHLORIDE 116 mmol/L (98-107); CREATININE 1.6 mg/dL (0.6-1.3); GLUCOSE 121 mg/dL (74-106); POTASSIUM 3.6 mmol/L (3.5-5.1); UREA NITROGEN, BLOOD 54 mg/dL (7-18)
[2017-12-10 07:30] LABS: BASOPHILS % (AUTO) 0.2 % (0.0-2.0); EOSINOPHILS % (AUTO) 0.2 % (0.0-6.0); HEMATOCRIT 26 % (39-51); LYMPHOCYTES % (AUTO) 19.7 % (20.0-44.0); MEAN CORPUSCULAR HGB CONC 31 g/dl (31.0-36.0); MEAN CORPUSCULAR VOLUME 88 fL (80-96); MONOCYTES % (AUTO) 6.9 % (2.0-12.0); NEUTROPHILS # (AUTO) 10.9 /CMM (1.8-8.9); PLATELET COUNT (AUTO) 128 /CMM (150-450)
[2017-12-10 07:43] LABS: SODIUM SERUM 156 mmol/L (136-145)
[2017-12-10] MEDS: FERROUS SULFATE UDC 300 MG/5 ML UDC GT SCH (08:42)
[2017-12-10] MEDS: DOCUSATE SODIUM LIQ 100 MG/10 ML UDC GT SCH (08:42)
[2017-12-10] MEDS: CALCIUM CARB 250MG /VITAMIN D 1 UDTAB GT SCH (08:43)
[2017-12-10] MEDS: PANTOPRAZOLE 40 MG VIAL IV SCH (08:43)
[2017-12-10] MEDS: MULTIVITAMINS,THERAGRAN 1 UDTAB TABLET GT SCH (08:43)
[2017-12-10] MEDS: FOLIC ACID 1 MG TABLET GT SCH (08:43)
[2017-12-10] MEDS: LEVOTHYROXINE SODIUM 125 MCG TABLET GT SCH (08:43)
[2017-12-10] MEDS: ASCORBIC ACID 500 MG TABLET GT SCH (08:43)
[2017-12-10] MEDS: PYRIDOXINE HCL 50 MG TABLET GT SCH ×3 (08:43→16:34)
[2017-12-10] MEDS: BICALUTAMIDE 50 MG TABLET GT SCH (08:45)
[2017-12-10] MEDS: PROSOURCE / PROSTAT (PYXIS) 30 ML UDC GT SCH (08:47)
[2017-12-10] MEDS: THERAHONEY GEL 1.5 OZ TUBE TP SCH (08:48)
[2017-12-10] MEDS: Z GUARD REMEDY 2 OZ OINT TP SCH (08:48)
--- NOTE | 2017-12-10 12:00 | NUR ---
RN NOTES PT STABLE , TOLERATING TF WELL, CONTINUE TO MONITOR .
[2017-12-10] MEDS: INSULIN REGULAR, HUMAN 100 UNIT/ML 3 ML VIAL SQ PRN (12:13)
--- NOTE | 2017-12-10 18:09 | NUR ---
RN NOTES PT STABLE, TRACH SUCTIONING DONE, TG TF WELL AT T45CC/ HR , ENAMORADO DRAINING TO GRAVITY , NO BM ON THIS SHIFT, SR UP X3, CALL LIGHT WITHIN EASY REACH, WILL ENDORSE TO TRANSFER CONTROLLER NURSE FO CONTINUITY OF CARE.
--- NOTE | 2017-12-10 20:14 | NUR ---
PT REC'D TRACHED ON [facility] VENT SETTINGS CHARTED. NO RESP DISTRESS OR SOB NOTED. SX'D THICK YELLOW MOD AMT OF SECRETIONS. TRACH TUBE PATENT AND SECURED. ALARMS ARE SET AND AUDIBLE. VENT PLUGGED INTO RED OUTLET. AMBU BAG BEDSIDE. WILL CONTINUE TO MONITOR. Addendum: 12/11/17 at 0510 by JEFERSON ELLSWORTH RT Amended: Links added.
[2017-12-11] VITALS: BP 118/54
[2017-12-11] MEDS ORDERED: VANCOMYCIN 1 GM in IV D5W 250 ML IV SCH (01:00)
[2017-12-11] MEDS: BLOOD SUGAR DIAGNOSTIC 1 EACH STRIP IN SCH ×4 (01:34→17:43)
[2017-12-11] MEDS: MEROPENEM 1 G in IV NS 0.9% 100 ML IV SCH ×2 (01:34→12:50)
--- NOTE | 2017-12-11 01:54 | NUR ---
RN NOTE DID NOT ADMINISTER VANCOMYCIN @ 0100 DUE TO VANCO LEVEL IS 25.
[2017-12-11 04:00] VITALS: BP 109/54
[2017-12-11 06:57] LABS: HEMATOCRIT 26 % (39-51); HEMOGLOBIN 8.4 g/dL (13.5-17.5); MEAN CORPUSCULAR HGB CONC 32 g/dl (31.0-36.0); MEAN CORPUSCULAR VOLUME 88 fL (80-96); PLATELET COUNT (AUTO) 129 /CMM (150-450); RDW COEFFICIENT OF VARIATION 21.8 (11.5-15.0); RED BLOOD CELL COUNT(AUTO) 2.94 MIL/uL (4.5-6.0); WHITE BLOOD COUNT (AUTO) 16.1 K/uL (4.3-11.0)
[2017-12-11 07:16] LABS: CALCIUM, SERUM 6.6 mg/dL (8.5-10.1); CARBON DIOXIDE 27 mmol/L (21-32); CHLORIDE 118 mmol/L (98-107); CREATININE 1.6 mg/dL (0.6-1.3); GLUCOSE 99 mg/dL (74-106); MAGNESIUM 1.3 mg/dL (1.8-2.4); PHOSPHORUS 4.2 mg/dL (2.5-4.9); POTASSIUM 3.4 mmol/L (3.5-5.1); UREA NITROGEN, BLOOD 58 mg/dL (7-18)
--- NOTE | 2017-12-11 07:20 | NUR ---
ELEVATOR WORKER OPENING NOTES RECEIVED REPORT FROM PM NURSE, PT ON BED, VENT/ TRACH DEPENDENT, NONVERBAL , ALERTX1.ABLE TO NOD HEAD FOR YES OR NO QUESTIONS. NO SOB NOTED, ON TELE ST HR IN 106. , ENAMORADO DRAINING TO GRAVITY , GLUCERNA AT 30CC/HR RUNNING VIA GT , LEFT FA IV G 22 AND R WRIST IV G 18 SITES CLEAN , DRY AND INTACT, SR UP x3, CALL LIGHT WITHIN EASY REACH, BED LOCKED AND IN LOWEST POSITION, WILL CONTINUE TO MONITOR .
--- NOTE | 2017-12-11 07:31 | NUR ---
RN NOTE PT REMAINS IN NO ACUTE DISTRESS IN BED. PT DID NOT HAVE ANY SIGNIFICANT CHANGE IN CONDITION DURING SHIFT. PT TOLERATED VENT SETTING WELL. ALL NEEDS MET, ALL ORDERS CARRIED OUT. WILL ENDORSE CARE TO AM RN FOR CONTINUITY OF CARE.
[2017-12-11 07:40] LABS: SODIUM SERUM 158 mmol/L (136-145)
[2017-12-11 08:00] VITALS: BP_SYST 100; BP_DIAS 40; BP_DIAS 52
[2017-12-11 08:11] LABS: LYMPHOCYTES % (MANUAL) 11 % (16-48); MONOCYTES % (MANUAL) 9 % (0-11.0); NEUTROPHILS % (MANUAL) 80 (42-76)
[2017-12-11] MEDS: LEVOTHYROXINE SODIUM 125 MCG TABLET GT SCH (08:50)
[2017-12-11] MEDS: FOLIC ACID 1 MG TABLET GT SCH (08:50)
[2017-12-11] MEDS: ASCORBIC ACID 500 MG TABLET GT SCH (08:50)
[2017-12-11] MEDS: BICALUTAMIDE 50 MG TABLET GT SCH (08:50)
[2017-12-11] MEDS: FERROUS SULFATE UDC 300 MG/5 ML UDC GT SCH (08:50)
[2017-12-11] MEDS: MULTIVITAMINS,THERAGRAN 1 UDTAB TABLET GT SCH (08:50)
[2017-12-11] MEDS: CALCIUM CARB 250MG /VITAMIN D 1 UDTAB GT SCH (08:50)
[2017-12-11] MEDS: DOCUSATE SODIUM LIQ 100 MG/10 ML UDC GT SCH (08:50)
[2017-12-11] MEDS: PYRIDOXINE HCL 50 MG TABLET GT SCH ×3 (08:51→17:42)
[2017-12-11] MEDS: PROSOURCE / PROSTAT (PYXIS) 30 ML UDC GT SCH (08:51)
[2017-12-11] MEDS: PANTOPRAZOLE 40 MG VIAL IV SCH (08:51)
[2017-12-11] MEDS: HYDROCODONE/APAP 10/325MG 1 EA TABLET GT PRN ×2 (08:51→17:42)
[2017-12-11] MEDS: Magnesium 1GM/D5W 100ML PREMIX 100 ML IV SCH ×2 (08:54→10:19)
[2017-12-11] MEDS: Z GUARD REMEDY 2 OZ OINT TP SCH (08:55)
[2017-12-11] MEDS ORDERED: POTASSIUM CHLORIDE 20 MEQ POWDER PACKET GT ONE (09:00)
[2017-12-11] MEDS: THERAHONEY GEL 1.5 OZ TUBE TP SCH (09:26)
--- NOTE | 2017-12-11 10:00 | NUR ---
MAIL PROCESSING ASSOCIATE NOTES SEEN BY WITH NEW ORDER TO CHANGE FIO2 TO 40%.
--- NOTE | 2017-12-11 11:38 | NUR ---
VENT CHANGES BELOW PER DR LEÓN: FIO2 40% Addendum: 12/11/17 at 1139 by ALEXANDREA KEITH RT Amended: Links added.
[2017-12-11 12:00] VITALS: BP_SYST 91; BP_SYST 92; BP_DIAS 30; BP_DIAS 48
[2017-12-11] MEDS: INSULIN REGULAR, HUMAN 100 UNIT/ML 3 ML VIAL SQ PRN (12:51)
[2017-12-11] MEDS: IV D5W 1,000 ML IV PRN (13:24)
--- NOTE | 2017-12-11 14:00 | NUR ---
AUTOMOBILE SERVICE STATION MECHANIC NOTES SEEN BY WITH NEW ORDERS.
--- NOTE | 2017-12-11 14:15 | NUR ---
FIO2 PLACED BACK TO 50% DUE TO LOW SPO2 Addendum: 12/11/17 at 1416 by ALEXANDREA KEITH RT Amended: Links added.
[2017-12-11 16:00] VITALS: BP_SYST 90; BP_SYST 94; BP_DIAS 45; BP_DIAS 46
[2017-12-11] MEDS ORDERED: VANCOMYCIN 0.75 GM in IV D5W 250 ML IV SCH (18:00)
--- NOTE | 2017-12-11 19:28 | NUR ---
PEER SUPPORT SPECIALIST CLOSING NOTES PT ON BED, VENT/ TRACH DEPENDENT, NONVERBAL , ALERTX1.ABLE TO NOD HEAD FOR YES OR NO QUESTIONS. NO SOB NOTED, ON TELE ST HR IN 99. , ENAMORADO DRAINING TO GRAVITY , GLUCERNA AT 30CC/HR RUNNING VIA GT , R WRIST IV G 18 SITES CLEAN , DRY AND INTACT, SR UP x3, CALL LIGHT WITHIN EASY REACH, BED LOCKED AND IN LOWEST POSITION, HAD AN EPISODE OF V TACH 20CYCLES AND BACK TO NORMAL.MELISSA PERSAUD MADE AWARE.ENDORSED TO PM NURSE FOR JESSE.
--- NOTE | 2017-12-11 19:30 | NUR ---
RECEIVED PATIENT IN BED, PATIENT IS A&O X1, NODS HER HEAD "YES" OR "NO" TO A SIMPLE QUESTIONS. VSS, AFEBRILE, NO DISTRESS NOTED . PATIENT IS VENT/TRACH SAT. 94-100%. PATIENT IS TURNED/REPOSITIONED AT THIS TIME. CONTINUE TO MONITOR
[2017-12-11 20:00] VITALS: BP 110/53
[2017-12-12] VITALS (20 sets, daily range): BP systolic 96–113; BP diastolic 40–53
[2017-12-12] MEDS: BLOOD SUGAR DIAGNOSTIC 1 EACH STRIP IN SCH ×5 (00:38→23:14)
[2017-12-12] MEDS: INSULIN REGULAR, HUMAN 100 UNIT/ML 3 ML VIAL SQ PRN ×4 (00:38→23:28)
[2017-12-12] MEDS: MEROPENEM 1 G in IV NS 0.9% 100 ML IV SCH ×2 (00:39→12:12)
[2017-12-12 07:22] LABS: HEMATOCRIT 25 % (39-51); HEMOGLOBIN 8.2 g/dL (13.5-17.5); MEAN CORPUSCULAR HGB CONC 32 g/dl (31.0-36.0); MEAN CORPUSCULAR VOLUME 90 fL (80-96); RDW COEFFICIENT OF VARIATION 22.1 (11.5-15.0); RED BLOOD CELL COUNT(AUTO) 2.83 MIL/uL (4.5-6.0); WHITE BLOOD COUNT (AUTO) 13.2 K/uL (4.3-11.0)
[2017-12-12 07:36] LABS: CALCIUM, SERUM 6.9 mg/dL (8.5-10.1); CARBON DIOXIDE 26 mmol/L (21-32); CHLORIDE 116 mmol/L (98-107); CREATININE 1.7 mg/dL (0.6-1.3); GLUCOSE 159 mg/dL (74-106); MAGNESIUM 1.7 mg/dL (1.8-2.4); PHOSPHORUS 4.6 mg/dL (2.5-4.9); POTASSIUM 3.7 mmol/L (3.5-5.1); SODIUM SERUM 155 mmol/L (136-145); UREA NITROGEN, BLOOD 58 mg/dL (7-18)
--- NOTE | 2017-12-12 08:00 | NUR ---
COCONUT CANDY MAKER NOTES RECEIVE PT IN THE BED. NON VERBAL, ON TRACH/VENT. PT ON TELE MONITOR HR 99 SR, WITH F/C YELLOW CLEAR URINE. RIGHT WRIST HEP LOCK INTACT NO S/S INFRCTION. PT HAS G TUBE FEEDING, TOLERATING WELL, NO RESIDUAL NOTED. BED LOCKED IN LOWEST POSITION AND WE WILL CONTINUE TO MONITOR CLOSELY Addendum: 12/12/17 at 1750 by OLE HUNT RN 0800 SAT ON 50 %FIO2 % SAT 93-94, WILL CONT TO MONITOR CLOSELY
[2017-12-12 08:19] LABS: PLATELET COUNT (AUTO) 88 /CMM (150-450)
[2017-12-12 08:23] LABS: LYMPHOCYTES % (MANUAL) 13 % (16-48); MONOCYTES % (MANUAL) 7 % (0-11.0); NEUTROPHILS % (MANUAL) 80 (42-76)
[2017-12-12] MEDS: BICALUTAMIDE 50 MG TABLET GT SCH (08:43)
[2017-12-12] MEDS: CALCIUM CARB 250MG /VITAMIN D 1 UDTAB GT SCH (08:43)
[2017-12-12] MEDS: MULTIVITAMINS,THERAGRAN 1 UDTAB TABLET GT SCH (08:43)
[2017-12-12] MEDS: ASCORBIC ACID 500 MG TABLET GT SCH (08:43)
[2017-12-12] MEDS: FOLIC ACID 1 MG TABLET GT SCH (08:44)
[2017-12-12] MEDS: PROSOURCE / PROSTAT (PYXIS) 30 ML UDC GT SCH (08:44)
[2017-12-12] MEDS: DOCUSATE SODIUM LIQ 100 MG/10 ML UDC GT SCH (08:44)
[2017-12-12] MEDS: PANTOPRAZOLE 40 MG VIAL IV SCH (08:44)
[2017-12-12] MEDS: FERROUS SULFATE UDC 300 MG/5 ML UDC GT SCH (08:44)
[2017-12-12] MEDS: THERAHONEY GEL 1.5 OZ TUBE TP SCH (08:45)
[2017-12-12] MEDS: PYRIDOXINE HCL 50 MG TABLET GT SCH ×3 (08:46→16:02)
[2017-12-12] MEDS: Z GUARD REMEDY 2 OZ OINT TP SCH (08:46)
[2017-12-12] MEDS: LEVOTHYROXINE SODIUM 125 MCG TABLET GT SCH (08:47)
[2017-12-12] MEDS: VANCOMYCIN 0.75 GM in IV D5W 250 ML IV SCH (08:49)
[2017-12-12] MEDS ORDERED: Magnesium 1GM/D5W 100ML PREMIX 100 ML IV SCH (10:29)
--- NOTE | 2017-12-12 10:54 | NUR ---
WOOD TREATING INSPECTOR NOTE MAG 1.7 MAG IV ADMINISTERED ORDERED TRACH SUCTION DONE, SAT 95% AT THIS TIME
[2017-12-12] MEDS: IV D5W 1,000 ML IV PRN (12:11)
--- NOTE | 2017-12-12 13:00 | NUR ---
CD STORAGE AND MATERIALS MAKE UP HELPER NOTE SEEN AND EXAMINED BY CORI YANG SHOT POLISHER NOTIFIED THAT HG 8.2 PLATELETS 88 MAG 1.7 NA 155 AWARE THAT EARLIER SAT ON FIO2 50% SAT 93-94 % WILL CONT TO MONITOR CLOSELY
--- NOTE | 2017-12-12 16:00 | NUR ---
LABOURERS NOTE SAT ON FIO2 50% IS 88-92% , TRACH SUCTION DONE RT AT BESIDE WILL CONT TO MONITOR CLOSELY
--- NOTE | 2017-12-12 16:35 | NUR ---
CLINICAL ACCOUNT MANAGER NOTE STILL ON 50% O2, SAT 91-88%, HR ON TELE MONITOR ST 106-110, CALLED TO CORI RN HOP TRAINER OK TO TRANSFER TO ICU ,OK TO ABG, RT NOTIFIED
--- NOTE | 2017-12-12 17:00 | NUR ---
OPTICS TEST TECHNICIAN NOTE TRANSFERRED TO ICU BY ACLS PROTOCOL WITH RT , REPORT GIVEN TO SCAR YANG
--- NOTE | 2017-12-12 17:15 | NUR ---
ICU/RN: Pt received from tele, pt awake, tracks, unable to follow commands, tachypneic with no signs of pain noted. On FiO2 55% with SPO2 94-96%. Pending ABG and CXR.
[2017-12-12 17:19] LABS: ABG BASE EXCESS -1.1 mmol/L; ABG PCO2 51.5 mmHg (35.0-45.0); ABG PH 7.311 (7.350-7.450); ABG PO2 46.6 mmHg (75.0-100.0); COHb 0.3 % (0.5-1.5); MetHb 0.8 % (0.0-1.5); O2Hb 77.1 % (94.0-97.0); PEEP,BG 5 cm H2O; SITE, ABG Right Brachial; VT, ABG 550 mL
--- NOTE | 2017-12-12 17:39 | NUR ---
VENT CHANGES BELOW MADE PER DR. LEÓN FIO2 100% PEEP +8 Addendum: 12/12/17 at 1740 by SIXTO CONTRERAS RT Amended: Links added.
--- NOTE | 2017-12-12 18:00 | NUR ---
ICU/RN: CXR results relayed to Dr Foote. Vent changes noted and carried out; pt on FiO2 100 and PEEP of 8
--- NOTE | 2017-12-12 19:42 | NUR ---
PRINCIPAL ANDROID DEVELOPER RCD PT W/DX SEPSIS; PT IS NON VERBAL; PORTEX 7 W/VENT SETTINGS AC 20 550 100% +8; PT HAS THICK WHITE SECRETIONS. ST ON MONITOR. TEMP 99.0; ENAMORADO CATH WIH MIN CLOUDY URINE OUTPUT. G TUBE WITH GLUCERNA @ 45 ML/HR; MIN RESIDUAL.
--- NOTE | 2017-12-12 22:00 | NUR ---
RECEIVED PT TRACHED ON VENT. PT TOLERATING VENT SETTINGS. SX'D FOR MOD AMT OF THICK YELLOW SECRETIONS. VENT ALARMS SET AND AUDIBLE. 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 VENT PLUGGED INTO RED OUTLET. AMBU BAG AT BEDSIDE. WILL CONTINUE TO MONITOR. Addendum: 12/12/17 at 2200 by BASSEM GRAMAJO RT Amended: Links added.
[2017-12-12] MEDS: GLUCERNA 1.2 1,000 ML BOTTLE GT PRN (23:14)
[2017-12-13] VITALS (40 sets, daily range): BP systolic 60–119; BP diastolic 46–71
[2017-12-13] MEDS: MEROPENEM 1 G in IV NS 0.9% 100 ML IV SCH ×2 (01:15→12:12)
[2017-12-13 04:56] LABS: HEMATOCRIT 23 % (39-51); HEMOGLOBIN 7.4 g/dL (13.5-17.5); MEAN CORPUSCULAR HGB CONC 32 g/dl (31.0-36.0); MEAN CORPUSCULAR VOLUME 90 fL (80-96); PLATELET COUNT (AUTO) 83 /CMM (150-450); RDW COEFFICIENT OF VARIATION 21.8 (11.5-15.0); RED BLOOD CELL COUNT(AUTO) 2.58 MIL/uL (4.5-6.0); WHITE BLOOD COUNT (AUTO) 14.4 K/uL (4.3-11.0)
[2017-12-13 05:10] LABS: CALCIUM, SERUM 7.2 mg/dL (8.5-10.1); CARBON DIOXIDE 25 mmol/L (21-32); CHLORIDE 111 mmol/L (98-107); CREATININE 1.4 mg/dL (0.6-1.3); GLUCOSE 84 mg/dL (74-106); MAGNESIUM 1.7 mg/dL (1.8-2.4); PHOSPHORUS 4.7 mg/dL (2.5-4.9); POTASSIUM 3.7 mmol/L (3.5-5.1); SODIUM SERUM 148 mmol/L (136-145); UREA NITROGEN, BLOOD 56 mg/dL (7-18)
[2017-12-13 05:37] LABS: BAND % (MANUAL) 4 % (0.0-5.0); LYMPHOCYTES % (MANUAL) 7 % (16-48); NEUTROPHILS % (MANUAL) 87 (42-76)
[2017-12-13 05:38] LABS: MONOCYTES % (MANUAL) 2 % (0-11.0)
[2017-12-13] MEDS: BLOOD SUGAR DIAGNOSTIC 1 EACH STRIP IN SCH ×3 (06:20→17:26)
--- NOTE | 2017-12-13 07:30 | NUR ---
ICU/RN: Pt received in stable condition, no distress noted, breathing even and unlabored, alert and follows commands, communicates needs. IVF infusing well. Residual >280 cc noted. TF held. Will reassess shortly.
[2017-12-13] MEDS: DOCUSATE SODIUM LIQ 100 MG/10 ML UDC GT SCH (09:00)
[2017-12-13] MEDS: Z GUARD REMEDY 2 OZ OINT TP SCH (09:11)
[2017-12-13] MEDS: MULTIVITAMINS,THERAGRAN 1 UDTAB TABLET GT SCH (09:11)
[2017-12-13] MEDS: CALCIUM CARB 250MG /VITAMIN D 1 UDTAB GT SCH (09:11)
[2017-12-13] MEDS: FERROUS SULFATE UDC 300 MG/5 ML UDC GT SCH (09:11)
[2017-12-13] MEDS: PROSOURCE / PROSTAT (PYXIS) 30 ML UDC GT SCH (09:11)
[2017-12-13] MEDS: FOLIC ACID 1 MG TABLET GT SCH (09:11)
[2017-12-13] MEDS: PYRIDOXINE HCL 50 MG TABLET GT SCH ×3 (09:11→17:26)
[2017-12-13] MEDS: PANTOPRAZOLE 40 MG VIAL IV SCH (09:11)
[2017-12-13] MEDS: ASCORBIC ACID 500 MG TABLET GT SCH (09:11)
[2017-12-13] MEDS: THERAHONEY GEL 1.5 OZ TUBE TP SCH (09:12)
[2017-12-13] MEDS: LEVOTHYROXINE SODIUM 125 MCG TABLET GT SCH (09:14)
--- NOTE | 2017-12-13 09:32 | NUR ---
PT REC'D TRACHED ON [facility] VENT SETTINGS CHARTED. NO RESP DISTRESS OR SOB NOTED. SX'D THICK YELLOW MOD AMT OF SECRETIONS. TRACH TUBE PATENT AND SECURED. ALARMS ARE SET AND AUDIBLE. VENT PLUGGED INTO RED OUTLET. AMBU BAG BEDSIDE.
[2017-12-13] MEDS: BICALUTAMIDE 50 MG TABLET GT SCH (09:36)
[2017-12-13] MEDS: Magnesium 1GM/D5W 100ML PREMIX 100 ML IV SCH ×2 (09:46→11:08)
--- NOTE | 2017-12-13 10:00 | NUR ---
ICU/RN: Dr Foote rounds; updated on pt status. Labs reviewed.
[2017-12-13 10:19] LABS: ABG BASE EXCESS 0.1 mmol/L; ABG OXYGEN SATURATION 92.7 % (92.0-98.5); ABG PCO2 51.3 mmHg (35.0-45.0); ABG PH 7.327 (7.350-7.450); ABG PO2 72.3 mmHg (75.0-100.0); AaDO2 371.7 mmHg; COHb 0.3 % (0.5-1.5); MetHb 1.4 % (0.0-1.5); O2Hb 91.1 % (94.0-97.0); PEEP,BG 8 cm H2O; SITE, ABG Left Radial; VT, ABG 550 mL
--- NOTE | 2017-12-13 12:00 | NUR ---
ICU/RN: Maday Guthrie, SERVICE COUNTER CASHIER at bedside; updated on pt status. Informed of high residuals, labs, poc discussed. Awaiting orders. Will cont to monitor pt.
[2017-12-13] MEDS: IV D5W 1,000 ML IV PRN (12:46)
--- NOTE | 2017-12-13 15:00 | NUR ---
ICU/RN: Wound care, bed bath rendered. 50cc residuals noted. TF restarted at 20cc, will cont to monitor pt.
[2017-12-13] MEDS: METOCLOPRAMIDE HCL 10 MG/2 ML VIAL IV SCH (18:12)
--- NOTE | 2017-12-13 19:22 | NUR ---
ICU/RN: Pt comfortable, no distress, VSS, tolerating TF. FC draining to gravity. Urine culture collected, lab notified for burr picker. Report given to [facility] nurse for JESSE.
--- NOTE | 2017-12-13 19:45 | NUR ---
ICU/HAND SINGER RECEIVED REPORT FROM DAY NURSE. PATIENT ALERT SELF WITH NO ACUTE RESP DISTRESS NOTED. PT IS TOLERATING CURRENT VENT SETTINGS, WITH SATURATION AT 100'S %. PT IS NSR . IV ON RIGHT UPPER MIDLINE.PT G/TUBE FEEDING WITH FREE WATER FLUSHES. PT SOME PINK URINE.PT HAS A FEW SKIN ISSUES THAT ARE ADDRESSED ON FLOWSHEET. PT WAS TURNED AND REPOSITIONED FOR COMFORT AND CARE, WILL CONTINUE TO MONITOR THIS.
[2017-12-13] MEDS: VANCOMYCIN 0.75 GM in IV D5W 250 ML IV SCH (20:49)
--- NOTE | 2017-12-13 20:55 | NUR ---
ICU/MEAT AND POULTRY INSPECTOR PT'S FIO2 WAS CHANGED FROM 70 TO 60 BY RT. WILL CONTINUE TO MONITOR THIS PT'S SATURATION.
--- NOTE | 2017-12-13 23:58 | NUR ---
RECEIVED PT TRACHED ON VENT. PT TOLERATING VENT SETTINGS. SX'D FOR MOD AMT OF THICK YELLOW SECRETIONS. VENT ALARMS SET AND AUDIBLE. TRACH CUFF AGRICULTURAL LABOR CAMP MANAGER, SECURED. VENT PLUGGED INTO RED OUTLET. AMBU BAG AT BEDSIDE. WILL CONTINUE TO MONITOR. Addendum: 12/13/17 at 2359 by BASSEM GRAMAJO RT Amended: Links added.
[2017-12-14] VITALS (35 sets, daily range): BP systolic 106–125; BP diastolic 48–123
--- NOTE | 2017-12-14 00:10 | NUR ---
ICU/FABRICATOR FOAM RUBBER PT'S BLOOD SUGAR IS 108, WHICH THERE IS NO COVERAGE FOR THIS PER SLIDING SCALE. WILL CONTINUE TO MONITOR THIS PT'S BS ORDERED BY MD. PT WAS TURNED AND REPOSITIONED FOR COMFORT AND CARE.
[2017-12-14] MEDS: METOCLOPRAMIDE HCL 10 MG/2 ML VIAL IV SCH ×4 (00:16→17:00)
[2017-12-14] MEDS: BLOOD SUGAR DIAGNOSTIC 1 EACH STRIP IN SCH ×4 (00:23→17:00)
[2017-12-14] MEDS: MEROPENEM 1 G in IV NS 0.9% 100 ML IV SCH ×2 (00:25→12:01)
--- NOTE | 2017-12-14 01:00 | NUR ---
ICU/TEST BORER PT'S BLOOD SUGAR IS 144, THE COVERAGE FOR THIS IS 3 UNITS PER SLIDING SCALE. WILL CONTINUE TO MONITOR THIS PT'S BS ORDERED BY MD. PT WAS TURNED AND REPOSITIONED FOR COMFORT AND CARE.
--- NOTE | 2017-12-14 02:10 | NUR ---
ICU/MEDICAL DELIVERY DRIVER PT WAS GIVEN AM CARE ALONG WITH ORAL CARE. PT TOLERATED THIS WELL. PT REMAINS ON CURRENT VENT SETTINGS WITH SATURATION AT 98%. PT WAS THEN TURNED AND REPOSITIONED FOR COMFORT AND CARE. WILL CONTINUE TO MONITOR THIS PT. NO ACUTE DISTRESS SEEN.
[2017-12-14 04:54] LABS: HEMATOCRIT 23 % (39-51); HEMOGLOBIN 7.6 g/dL (13.5-17.5); MEAN CORPUSCULAR HGB CONC 32 g/dl (31.0-36.0); MEAN CORPUSCULAR VOLUME 88 fL (80-96); PLATELET COUNT (AUTO) 177 /CMM (150-450); RDW COEFFICIENT OF VARIATION 21.7 (11.5-15.0); RED BLOOD CELL COUNT(AUTO) 2.65 MIL/uL (4.5-6.0); WHITE BLOOD COUNT (AUTO) 16.4 K/uL (4.3-11.0)
[2017-12-14 05:27] LABS: CALCIUM, SERUM 7.1 mg/dL (8.5-10.1); CARBON DIOXIDE 24 mmol/L (21-32); CHLORIDE 106 mmol/L (98-107); CREATININE 1.6 mg/dL (0.6-1.3); GLUCOSE 115 mg/dL (74-106); MAGNESIUM 1.7 mg/dL (1.8-2.4); POTASSIUM 3.6 mmol/L (3.5-5.1); SODIUM SERUM 141 mmol/L (136-145); UREA NITROGEN, BLOOD 57 mg/dL (7-18)
[2017-12-14] MEDS: HYDROCODONE/APAP 10/325MG 1 EA TABLET GT PRN (06:25)
[2017-12-14] MEDS: GLUCERNA 1.2 1,000 ML BOTTLE GT PRN (06:25)
[2017-12-14] MEDS: IV D5W 1,000 ML IV PRN (06:26)
--- NOTE | 2017-12-14 06:30 | NUR ---
ICU/TOLL TESTBOARD WORKER PT'S BLOOD SUGAR IS 115, WHICH THERE IS NO COVERAGE FOR THIS PER SLIDING SCALE. WILL CONTINUE TO MONITOR THIS PT'S BS ORDERED BY MD. PT WAS TURNED AND REPOSITIONED FOR COMFORT AND CARE.
--- NOTE | 2017-12-14 07:05 | NUR ---
RN NOTES RECEIVED PT ON BED,NONVERBAL , ALERT , VENT/TRACH DEPENDENT, TOLERATING, CURRENT VENT SETTING WELL, NO SOB NOTED , GT GLUCERNA AT 20CC/ HR RUNNING VIA GT . R UPPER ARM MIDLINE SITE CLEAN, DRY AND INTACT, WITH D5W AT 50CC/HR RUNNING , SR UP x3, CALL LIGHT WITHIN EASY REACH, BED LOCKED AND IN LOWEST POSITION, CONTINUE TO MONITOR
[2017-12-14 07:53] LABS: BAND % (MANUAL) 2 % (0.0-5.0); LYMPHOCYTES % (MANUAL) 19 % (16-48); MONOCYTES % (MANUAL) 6 % (0-11.0); NEUTROPHILS % (MANUAL) 73 (42-76)
[2017-12-14] MEDS: PYRIDOXINE HCL 50 MG TABLET GT SCH ×3 (08:27→16:56)
[2017-12-14] MEDS: CALCIUM CARB 250MG /VITAMIN D 1 UDTAB GT SCH (08:27)
[2017-12-14] MEDS: DOCUSATE SODIUM LIQ 100 MG/10 ML UDC GT SCH (08:27)
[2017-12-14] MEDS: LEVOTHYROXINE SODIUM 125 MCG TABLET GT SCH (08:27)
[2017-12-14] MEDS: ASCORBIC ACID 500 MG TABLET GT SCH (08:28)
[2017-12-14] MEDS: FERROUS SULFATE UDC 300 MG/5 ML UDC GT SCH (08:28)
[2017-12-14] MEDS: PANTOPRAZOLE 40 MG VIAL IV SCH (08:28)
[2017-12-14] MEDS: FOLIC ACID 1 MG TABLET GT SCH (08:28)
[2017-12-14] MEDS: MULTIVITAMINS,THERAGRAN 1 UDTAB TABLET GT SCH (08:30)
[2017-12-14] MEDS: PROSOURCE / PROSTAT (PYXIS) 30 ML UDC GT SCH (08:31)
[2017-12-14] MEDS: Z GUARD REMEDY 2 OZ OINT TP PRN (08:33)
[2017-12-14] MEDS: THERAHONEY GEL 1.5 OZ TUBE TP SCH (08:33)
[2017-12-14] MEDS: Z GUARD REMEDY 2 OZ OINT TP SCH (08:34)
[2017-12-14 08:40] LABS: ABG BASE EXCESS -2.1 mmol/L; ABG OXYGEN SATURATION 90.5 % (92.0-98.5); ABG PCO2 49.4 mmHg (35.0-45.0); ABG PH 7.311 (7.350-7.450); ABG PO2 67.8 mmHg (75.0-100.0); AaDO2 305.7 mmHg; COHb 0.1 % (0.5-1.5); MetHb 0.5 % (0.0-1.5); SITE, ABG Right Radial
[2017-12-14] MEDS: BICALUTAMIDE 50 MG TABLET GT SCH (10:19)
[2017-12-14] MEDS ORDERED: Magnesium 1GM/D5W 100ML PREMIX 100 ML IV SCH (11:14)
--- NOTE | 2017-12-14 12:00 | NUR ---
RN NOTES TRACH SUCTIONING DONE, PT STABLE, TF STILL AT 20 CC/HR . PT HAS LARGE AMOUNT OF GASTRIC RESIDUAL , CONTINUE TO MONITOR .
[2017-12-14] MEDS: INSULIN REGULAR, HUMAN 100 UNIT/ML 3 ML VIAL SQ PRN (16:58)
--- NOTE | 2017-12-14 18:00 | NUR ---
RN NOTES PT REAMINS THE SAME, NO SIGNIFICANT CHANGES NOTED ON THIS SHIFT, D5W AT 50CC/HR RUNNING VIA R UPPER ARM MIDLINE, ENAMORADO DRINING TO GRAVITY , SR UP x3, CALL LIGHT WITHIN EASY REACH, WILL ENDOSE TO X RAY EQUIPMENT TESTER NURSE FOR CONTINUITY OF CARE.
--- NOTE | 2017-12-14 19:43 | NUR ---
RECEIVED PT TRACHED PORTEX 7 ON VENT WITH NOTED SETTINGS OF AC 20,550,PEEP 8, 60%. PT TOLERATING VENT SETTINGS. PT RESPONDS TO STIMULI WHEN SUCTIONED . SUCTIONED MODERATE AMOUNT OF THICK YELLOW SECRETIONS WITH PINK TINGED. VENT ALARMS SET AND AUDIBLE. TRACH PATENT AND SECURE, CUFF SITE SUPERINTENDENT. VENT PLUGGED INTO RED OUTLET. NO RESPIRATORY DISTRESS NOTED AT THIS TIME. WILL CONTINUE TO MONITOR.
--- NOTE | 2017-12-14 19:45 | NUR ---
ICU/GROUP HOME MANAGER RECEIVED REPORT FROM DAY NURSE. PATIENT ALERT SELF WITH NO ACUTE RESP DISTRESS NOTED. PT IS TOLERATING CURRENT VENT SETTINGS, WITH SATURATION LOW 90'S %. PT IS NSR . IV ON RIGHT UPPER ARM MIDLINE.PT G/TUBE FEEDING WITH FREE WATER FLUSHES Q 4 HRS AT 300ML. PT SOME PINKISH YELLOW URINE.PT HAS A FEW SKIN ISSUES THAT ARE ADDRESSED ON FLOWSHEET. PT WAS TURNED AND REPOSITIONED FOR COMFORT AND CARE, WILL CONTINUE TO MONITOR THIS.
--- NOTE | 2017-12-14 20:15 | NUR ---
ICU/REMOTE MEDICAL CODER PT HAS 300 PLUS RESIDUALS FROM G/TUBE. PT HAS FREE WATER FLUSHES 300 ML Q 4 HRS DUE TO HIGH SODIUM. TODAY SODIUM FROM AM LABS JUST CAME INTO NORMAL RANGE. FEEDING WAS TURNED OFF AT THIS TIME. PT IS RECEIVING REGLAN 5MG IVP Q 6 HRS. CHARGE NURSE AWARE OF HIGH RESIDUALS. WILL CONTINUE TO MONITOR PT'S RESIDUALS.
[2017-12-14 22:01] LABS: APPEARANCE,URINE CLOUDY (CLEAR); BILIRUBIN,URINE NEGATIVE (NEGATIVE); BLOOD, URINE 3+ Ery/uL (NEGATIVE); COLOR,URINE DARK YELLO (YELLOW); KETONES,URINE NEGATIVE (NEGATIVE); LEUKOCYTE ESTERASE ,URINE 3+ (NEGATIVE); NITRITE, URINE NEGATIVE (NEGATIVE); PROTEIN,URINE 1+ mg/dl (NEGATIVE); UGLUCOSE NEGATIVE (NEGATIVE); UROBILINOGEN,URINE 0.2 EU/dL (0.2)
[2017-12-14 22:07] LABS: BACTERIA,URINE Rare /HPF (None Seen); SQUAMOUS EPITHELIAL CELL,UR Few /HPF (None Seen); WBC,URINE 81-100 /HPF (0-3)
[2017-12-14 22:08] LABS: YEAST,URINE Moderate /HPF (None Seen)
[2017-12-15] VITALS (36 sets, daily range): BP systolic 98–125; BP diastolic 46–55
--- NOTE | 2017-12-15 00:30 | NUR ---
ICU/TEAM ASSEMBLER PT'S RESIDUALS FROM G/TUBE IS CURRENTLY 150ML. PT HAS FREE WATER FLUSHES 300 ML WAS GIVEN AT 2030 AND AGAIN AT 0. FEEDING REMAINS TURNED OFF AT THIS TIME. PT IS RECEIVING REGLAN 5MG IVP Q 6 HRS. CHARGE NURSE AWARE OF HIGH RESIDUALS THAT REMAIN. WILL CONTINUE TO MONITOR PT'S RESIDUALS.
[2017-12-15] MEDS: METOCLOPRAMIDE HCL 10 MG/2 ML VIAL IV SCH ×5 (00:49→20:40)
[2017-12-15] MEDS: MEROPENEM 1 G in IV NS 0.9% 100 ML IV SCH ×2 (00:49→12:49)
[2017-12-15] MEDS: BLOOD SUGAR DIAGNOSTIC 1 EACH STRIP IN SCH ×5 (00:50→23:50)
[2017-12-15] MEDS: INSULIN REGULAR, HUMAN 100 UNIT/ML 3 ML VIAL SQ PRN (00:52)
[2017-12-15] MEDS: IV D5W 1,000 ML IV PRN (01:52)
--- NOTE | 2017-12-15 02:18 | NUR ---
ICU/ANALYSIS LEAD PT WAS GIVEN AM CARE ALONG WITH ORAL CARE.ALSO DID DRESSING CHANGES TO COCCYX AREA. PT TOLERATED BATH, ORAL CARE, AND DRESSING CHANGES WELL. PT REMAINS ON CURRENT VENT SETTINGS WITH SATURATION AT 95%. PT WAS THEN TURNED AND REPOSITIONED FOR COMFORT AND CARE. WILL CONTINUE TO MONITOR THIS PT. NO ACUTE DISTRESS SEEN.
--- NOTE | 2017-12-15 04:30 | NUR ---
ICU/LABORER DRYING DEPARTMENT 0400 FREE WATER FLUSH WAS HELD. CHARGE NURSE WAS NOTIFIED OF THIS. RESIDUALS ARE AT 60ML. G/TUBE FEEDING WERE STARTED AGAIN. SODIUM AM ALBS ON 12/14/17 WAS NORMAL, WILL PASS ON TO DAY NURSE TO HAVE FREE WATER FLUSHED D/C'D BY . PT WAS TURNED AND REPOSITIONED FOR COMFORT AND CARE.
--- NOTE | 2017-12-15 04:30 | NUR ---
ICU/RESUME SPECIALIST AM LABS WERE DRAWN, WAIT FOR ANY ABNORMAL VALUES.
[2017-12-15 05:01] LABS: HEMATOCRIT 23 % (39-51); HEMOGLOBIN 7.5 g/dL (13.5-17.5); MEAN CORPUSCULAR HGB CONC 32 g/dl (31.0-36.0); MEAN CORPUSCULAR VOLUME 89 fL (80-96); PLATELET COUNT (AUTO) 121 /CMM (150-450); RED BLOOD CELL COUNT(AUTO) 2.62 MIL/uL (4.5-6.0); WHITE BLOOD COUNT (AUTO) 15.1 K/uL (4.3-11.0)
[2017-12-15 05:11] LABS: CARBON DIOXIDE 24 mmol/L (21-32); CHLORIDE 103 mmol/L (98-107); CREATININE 1.5 mg/dL (0.6-1.3); GLUCOSE 114 mg/dL (74-106); POTASSIUM 3.4 mmol/L (3.5-5.1); SODIUM SERUM 139 mmol/L (136-145); UREA NITROGEN, BLOOD 53 mg/dL (7-18)
[2017-12-15 05:12] LABS: MAGNESIUM 1.8 mg/dL (1.8-2.4); PHOSPHORUS 5.3 mg/dL (2.5-4.9)
[2017-12-15 05:26] LABS: BAND % (MANUAL) 4 % (0.0-5.0); LYMPHOCYTES % (MANUAL) 16 % (16-48); MONOCYTES % (MANUAL) 3 % (0-11.0); NEUTROPHILS % (MANUAL) 77 (42-76)
[2017-12-15] MEDS: GLUCERNA 1.2 1,000 ML BOTTLE GT PRN (06:53)
[2017-12-15] MEDS: LEVOTHYROXINE SODIUM 125 MCG TABLET GT SCH (07:46)
[2017-12-15 07:47] LABS: ABG BASE EXCESS -1.7 mmol/L; ABG OXYGEN SATURATION 91.6 % (92.0-98.5); ABG PCO2 41.7 mmHg (35.0-45.0); ABG PH 7.369 (7.350-7.450); ABG PO2 67.4 mmHg (75.0-100.0); AaDO2 314.5 mmHg; COHb 0.1 % (0.5-1.5); MetHb 0.9 % (0.0-1.5); O2Hb 90.7 % (94.0-97.0); PEEP,BG 8 cm H2O; SITE, ABG Right Brachial
[2017-12-15] MEDS: VANCOMYCIN 0.75 GM in IV D5W 250 ML IV SCH (07:47)
--- NOTE | 2017-12-15 08:05 | NUR ---
RT PATIENT REC'D TRACHED ON [facility] VENT WITH ORDERED SETTINGS. VENT ALARMS CHECKED + AUDIBLE. TRACH SECURE + IN PROPER POSITION. B/S DIM COARSE. PATIENT AIRWAY SUCTIONED AND PATENT WITH MOD AMT OF PALE PAPPAS SEMITHICK SECRETIONS. AMBU BAG AT HOB Addendum: 12/15/17 at 1110 by FABIAN ZHENG RT Amended: Links added.
[2017-12-15] MEDS: THERAHONEY GEL 1.5 OZ TUBE TP SCH (08:48)
[2017-12-15] MEDS: FOLIC ACID 1 MG TABLET GT SCH (08:49)
[2017-12-15] MEDS: FERROUS SULFATE UDC 300 MG/5 ML UDC GT SCH (08:49)
[2017-12-15] MEDS: CALCIUM CARB 250MG /VITAMIN D 1 UDTAB GT SCH (08:49)
[2017-12-15] MEDS: MULTIVITAMINS,THERAGRAN 1 UDTAB TABLET GT SCH (08:49)
[2017-12-15] MEDS: ASCORBIC ACID 500 MG TABLET GT SCH (08:49)
[2017-12-15] MEDS: Z GUARD REMEDY 2 OZ OINT TP SCH (08:49)
[2017-12-15] MEDS: DOCUSATE SODIUM LIQ 100 MG/10 ML UDC GT SCH (08:49)
[2017-12-15] MEDS: BICALUTAMIDE 50 MG TABLET GT SCH (08:50)
[2017-12-15] MEDS: PROSOURCE / PROSTAT (PYXIS) 30 ML UDC GT SCH (08:50)
[2017-12-15] MEDS: PANTOPRAZOLE 40 MG VIAL IV SCH (08:50)
[2017-12-15] MEDS: PYRIDOXINE HCL 50 MG TABLET GT SCH ×3 (08:50→16:05)
[2017-12-15] MEDS ORDERED: POTASSIUM CHLORIDE 20 MEQ POWDER PACKET GT ONE (10:00)
--- NOTE | 2017-12-15 11:15 | NUR ---
VAULT CASHIER NOTE RECEIVED PATENT FROM SUMAN RN ,PATIENT WITH TRACH TO VENT SETTING ORDERED , SAT 96% ,AMBU BAG AT HOB AT ALL TIME , ON TELE MONITOR SR HR 90 , NONVERBAL BUT EYES OPEN ,WITH ENAMORADO CATH TO GRAVITY WITH YELLOW ORANGE COLOR URINE , ON G TUBE FEEDING ORDERED KEEP HOB ELEVATED ALL NEEDS ATTENDED, BED IN LOWEST AND LOCKED POSITION , WILL CONT TO MONITOR CLOSELY
--- NOTE | 2017-12-15 12:55 | NUR ---
BIOMEDICAL ENGINEERING AIDE NOTE NOTED GASTRIC RESIDUAL 250 ML AT THIS TIME , TUBER FEEDING HOLD ,WILL F\U
--- NOTE | 2017-12-15 14:00 | NUR ---
CHIEF CLOTH FINISHING RANGE OPERATOR NOTE SAT 90-88% ON 60 %FIO2 ,CALLED RT, INCREASED UP TO FIO2 80%,WILL MONITOR CLOSELY
--- NOTE | 2017-12-15 14:29 | NUR ---
FOUNDATION RELATIONS MANAGER NOTE RECHECK RESIDUAL, NOW IS 90 ML ,RESUMED G TUBE FEEDING ,CORI RN FIBERGLASS QUALITY TECHNICIAN ALSO NOTIFIED THAT NA 139 TO STOP IRRIGATE 300 ML FREE WATER VIA G TUBE
--- NOTE | 2017-12-15 15:05 | NUR ---
AXMINSTER RUG SETTER NOTE SAT NOW 98%, CONT ON IVF AND G TUBE FEEDING ,KEEP HOB ELEVATED AT LL TIME .WILL CONT TO MONITOR CLOSELY
--- NOTE | 2017-12-15 15:48 | NUR ---
RT FIO2 INCREASED TO 80% FOR EPISODES OF DESATURATION. RN AWARE Addendum: 12/15/17 at 1549 by FABIAN ZHENG RT Amended: Links added.
--- NOTE | 2017-12-15 16:54 | NUR ---
ANATOMICAL EMBALMER NOTE PATIENT RN PSYCHOLOGY DEPARTMENT CHAIR SURGERY AT BEDSIDE ,NOTIFIED THAT PATIENT CONDITION STILL FRAGILE TO DO SACRAL DEBRIDEMENT, STATED WILL DO WHEN PATIENT MORE STABLE , KEEP CLEAN DRY , ALL NEEDS ATTENDED, ON G TUBE FEEDING TOLERATED ,KEEP HOB ELEVATED AT ALL TIME ,WILL CONT TO MONITOR CLOSELY
--- NOTE | 2017-12-15 17:25 | NUR ---
DEVICE PROCESSING ENGINEER NOTE PER DR PADRON ORDER CHANGED PEEP OF 10 .MD AWARE THAT PATIENT ON FIO2 OF 80 % AT THIS TIME ,WILL MONITOR FOR SATURATION AND BLOOD PRESSURE
--- NOTE | 2017-12-15 17:59 | NUR ---
POLICE STENOGRAPHER NOTE SPOKE WITH RADHA YANG THEATRICAL VARIETY AGENT GI NOTIFIED THAT GASTRIC REFUSAL 250ML IN AM ,ORDERED REGLAN 10 MG IV Q8 HOUR , ALSO PER PHARMACY OK TO GIVE VANCOMYCIN IV. AWARE THAT LEVEL 21 IN AM Addendum: 12/15/17 at 1814 by OLE HNUT RN PER RT CHANGED FIO2 70% AT THIS TIME ,SAT NOW 96%, BP 110/54, WILL CONT TO MONITOR CLOSELY
--- NOTE | 2017-12-15 18:47 | NUR ---
OPERATING ROOM SURGICAL TECHNICIAN NOTE PATIENT ON VENT SETTING ,CONT ON FIO2 70% .SAT 96% ,BP 105/47 ,CONT ON PEEP OF [address] ELDRIDGE ORDER, WITH ENAMORADO CATH TO GRAVITY , ON G TUBE FEEDING ORDERED , KEEP HOB ELEVATED AT ALL TIME, , WILL CONT TO MONITOR CLOSELY
[2017-12-15] MEDS ORDERED: VANCOMYCIN 0.75 GM in IV D5W 250 ML IV SCH (19:00)
--- NOTE | 2017-12-15 19:08 | NUR ---
RECEIVED PT TRACHED PORTEX 7 ON VENT WITH NOTED SETTINGS OF AC 20,550,PEEP 10, 70%. PT TOLERATING VENT SETTINGS. PT RESPONDS TO STIMULI WHEN SUCTIONED , NON VERBAL. SUCTIONED MODERATE AMOUNT OF THICK YELLOW SECRETIONS WITH PINK TINGED. VENT ALARMS SET AND AUDIBLE. TRACH PATENT AND SECURED, CUFF FAMILY PRACTICE PHYSICIAN ASSISTANT. VENT PLUGGED INTO RED OUTLET. NO RESPIRATORY DISTRESS NOTED AT THIS TIME. WILL CONTINUE TO MONITOR.
--- NOTE | 2017-12-15 20:00 | NUR ---
SUPERVISOR TRANSCRIBING OPERATORS NOTE RECEIVED PT IN BED NON VERBAL, BLINKS AND NODS HEAD. ON VENT/TRACH TOLERATING THE SETTINGS WELL. NO DISTRESS OR DISCOMFORT NOTED. NO S/S OF PAIN NOTED. ON TELE MONITOR SR HR 95. PITTING EDEMA +4 BILETRAL HAND AND +3 BILATERAL FEET. KEPT THEM ELEVATED. F/C INTACT AND PATENT DRAINING YELLOWISH COLOR URINE. GTF GLUCERNA AT 20 ML/HR, 30 ML RESIDUAL NOTED. SUKHI MIDLINE INTACT AND PATENT INFUSING D5W AT 50 ML/HR, NO S/S OF INFILTRATION NOTED. RT WRIST #22 G S/L INTACT AND PATENT. REPOSITION HIM FOR SKIN MANAGEMENT. SIDE RAILS UP X 3 AND CALL LIGHT WITHIN REACH. VSS. CONTINUE TO MONITOR HIM.
[2017-12-16] VITALS (44 sets, daily range): BP systolic 89–117; BP diastolic 39–78
[2017-12-16] MEDS: IV D5W 1,000 ML IV PRN (00:43)
[2017-12-16] MEDS: MEROPENEM 1 G in IV NS 0.9% 100 ML IV SCH ×2 (00:43→12:18)
[2017-12-16 05:14] LABS: HEMATOCRIT 21 % (39-51); MEAN CORPUSCULAR HGB CONC 32 g/dl (31.0-36.0); MEAN CORPUSCULAR VOLUME 88 fL (80-96); PLATELET COUNT (AUTO) 87 /CMM (150-450); RDW COEFFICIENT OF VARIATION 20.8 (11.5-15.0); RED BLOOD CELL COUNT(AUTO) 2.38 MIL/uL (4.5-6.0); WHITE BLOOD COUNT (AUTO) 12.7 K/uL (4.3-11.0)
[2017-12-16 05:30] LABS: CALCIUM, SERUM 7.2 mg/dL (8.5-10.1); CARBON DIOXIDE 22 mmol/L (21-32); CHLORIDE 102 mmol/L (98-107); CREATININE 1.5 mg/dL (0.6-1.3); GLUCOSE 103 mg/dL (74-106); MAGNESIUM 1.7 mg/dL (1.8-2.4); PHOSPHORUS 5.4 mg/dL (2.5-4.9); POTASSIUM 3.3 mmol/L (3.5-5.1); SODIUM SERUM 136 mmol/L (136-145); UREA NITROGEN, BLOOD 56 mg/dL (7-18)
[2017-12-16 05:42] LABS: HEMOGLOBIN 6.8 g/dL (13.5-17.5)
[2017-12-16] MEDS: METOCLOPRAMIDE HCL 10 MG/2 ML VIAL IV SCH ×3 (06:02→20:32)
[2017-12-16 06:08] LABS: LYMPHOCYTES % (MANUAL) 8 % (16-48); MONOCYTES % (MANUAL) 4 % (0-11.0); NEUTROPHILS % (MANUAL) 88 (42-76)
[2017-12-16] MEDS: BLOOD SUGAR DIAGNOSTIC 1 EACH STRIP IN SCH ×4 (06:08→23:38)
--- NOTE | 2017-12-16 06:35 | NUR ---
SHOE STAINER NOTE CRITICAL LAB RESULT RECEIVED H/H 6.8 PLATELETS 87. ED CHARGE NURSE TALKED WITH DR CADET AND RECEIVED NO NEW ORDER. PT IN BED, NO CHANGE IN CONDITION NOTED. BED BATH GIVEN. BM X 1. KEPT HIM DRY AND CLEAN. ALL NEEDS ATTENDED. SIDE RAILS UP X 3 AND CALL LIGHT WITHIN REACH. WILL ENDORSE TO DAY SHIFT NURSE FOR CONTINUE TO CARE.
--- NOTE | 2017-12-16 07:00 | NUR ---
RN NOTE RECEIVED PT ON BED, VENT/ TRACT DEPENDENT, NON VERBAL, NODS HEAD TO YES AND NO QUESTIONS, TOLERATING CURRENT VENT SETTING WELL, NO SOB NOTED AT THIS TIME , ON TELE MONITOR SR, HR 9O'S . F/C INTACT AND PATENT DRAINING YELLOWISH COLOR URINE. GLUCERNA AT 20 ML/HR, 40 ML RESIDUAL NOTED. D5W AT 50 ML/HR RUNNING VIA R UPPER ARM MIDLINE, SITE CLEAN, DRY AND INTACT, RT WRIST IV SITE G #22 G S/L INTACT AND PATENT. SIDE RAILS UP X 3 AND CALL LIGHT WITHIN EASY REACH. CONTINUE TO MONITOR CLOSLY .
--- NOTE | 2017-12-16 07:40 | NUR ---
RT PATIENT REC'D TRACHED ON [facility] VENT WITH ORDERED SETTINGS. VENT ALARMS CHECKED + AUDIBLE. TRACH SECURE + IN PROPER POSITION. B/S DIM COARSE. PATIENT AIRWAY SUCTIONED AND PATENT WITH MOD AMT OF PALE PAPPAS SEMITHICK SECRETIONS. AMBU BAG AT HOB Addendum: 12/16/17 at 1047 by FABIAN ZHENG RT Amended: Links added.
[2017-12-16] MEDS: LEVOTHYROXINE SODIUM 125 MCG TABLET GT SCH (07:59)
[2017-12-16] MEDS: PANTOPRAZOLE 40 MG VIAL IV SCH (08:00)
[2017-12-16] MEDS: FOLIC ACID 1 MG TABLET GT SCH (08:00)
[2017-12-16] MEDS: DOCUSATE SODIUM LIQ 100 MG/10 ML UDC GT SCH (08:00)
[2017-12-16] MEDS: FERROUS SULFATE UDC 300 MG/5 ML UDC GT SCH (08:00)
[2017-12-16] MEDS: PYRIDOXINE HCL 50 MG TABLET GT SCH ×3 (08:00→16:17)
[2017-12-16] MEDS: CALCIUM CARB 250MG /VITAMIN D 1 UDTAB GT SCH (08:00)
[2017-12-16] MEDS: MULTIVITAMINS,THERAGRAN 1 UDTAB TABLET GT SCH (08:00)
[2017-12-16] MEDS: ASCORBIC ACID 500 MG TABLET GT SCH (08:01)
[2017-12-16] MEDS: PROSOURCE / PROSTAT (PYXIS) 30 ML UDC GT SCH (08:02)
[2017-12-16] MEDS: THERAHONEY GEL 1.5 OZ TUBE TP SCH (08:03)
[2017-12-16] MEDS: Z GUARD REMEDY 2 OZ OINT TP SCH (08:04)
[2017-12-16] MEDS: BICALUTAMIDE 50 MG TABLET GT SCH (08:04)
[2017-12-16 09:18] LABS: ABG BASE EXCESS -3.8 mmol/L; ABG OXYGEN SATURATION 89.3 % (92.0-98.5); ABG PH 7.291 (7.350-7.450); ABG PO2 64.3 mmHg (75.0-100.0); AaDO2 383.2 mmHg; COHb 0.2 % (0.5-1.5); MetHb 0.8 % (0.0-1.5); O2Hb 88.4 % (94.0-97.0); PEEP,BG 10 cm H2O; SITE, ABG Right Brachial
--- NOTE | 2017-12-16 09:40 | NUR ---
POST ABG RESULTS PER DR LEÓN PEEP INCREASED TO 12. RN NOTIFIED Addendum: 12/16/17 at 1045 by FABIAN ZHENG RT Amended: Links added.
--- NOTE | 2017-12-16 10:24 | NUR ---
HOSPICE AIDE NOTES NOTIFIED DR LEÓN REGARDING H/H , DISCUSSED PREVIOS CBC RESULT , NO ACTIBE BLEEDING NOTED , PER MD GIVE 1 UNIT PRBC , ORDER CARRIED OUT
[2017-12-16] MEDS: Magnesium 1GM/D5W 100ML PREMIX 100 ML IV SCH ×2 (10:43→11:47)
[2017-12-16] MEDS ORDERED: POTASSIUM CHLORIDE 20 MEQ POWDER PACKET GT SCH (11:00)
[2017-12-16] MEDS: Potassium Chloride 40 MEQ in IV D5W 1,000 ML IV PRN (14:56)
[2017-12-16] MEDS: GLUCERNA 1.2 1,000 ML BOTTLE GT PRN (14:58)
--- NOTE | 2017-12-16 15:50 | NUR ---
RN NOTES ONE UNIT OF PRBC STARTED , PT TOLERATING WELL, CONTINUE TO MONITOR .
--- NOTE | 2017-12-16 18:30 | NUR ---
RN NOTES ONE UNIT OF PRBC INFUSED , PT TOLERATED WELL, VSS STABLE, TF STILL AT 20CC/HR , HIGH RESIDUAL NOTED THROUGHOUT THE SHIFT . SR UP x3, CALL LIGHT WITHIN EASY REACH, WILL ENDORSE TO SUPERVISOR HEAVY EQUIPMENT NURSE FOR CONTINUITY OF CARE .
--- NOTE | 2017-12-16 19:30 | NUR ---
PRESS MACHINE FEEDER INITIAL NOTE PT RECEIVED IN BED. PT NONVERBAL AND ON MECH VENT WITH SETTINGS WELL TOLERATED. NO DISTRESS NOTED. HOB ELEVATED AND ON ASPIRATION PRECAUTIONS. GT FEEDING ON HOLD WITH 200ML RESIDUALS NOTED. IV SUKHI MIDLINE CLEAN AND PATENT WITH FLUIDS INFUSING AT THIS TIME. TELE-SR 95. ENAMORADO CATHETER IN PLACE AND DRAINING BY GRAVITY. WILL CONTINUE TO MONITOR.
[2017-12-16] MEDS: FLUCONAZOLE (100 MG) 100 MG TABLET PO SCH (19:50)
--- NOTE | 2017-12-16 20:11 | NUR ---
RECEIVED PT TRACHED ON VENT. NO RESP DISTRESS. PT TOLERATING VENT SETTINGS. SX'D FOR MOD AMT OF THICK PAPPAS SECRETIONS. VENT ALARMS SET AND AUDIBLE. AMBU BAG AT BEDSIDE. TRACH SECURE, CUFF MARINE FISHERIES TECHNICIAN. VENT PLUGGED INTO RED OUTLET. WILL CONTINUE TO MONITOR. Addendum: 12/16/17 at 2013 by TARI GLORIA RT Amended: Links added.
[2017-12-16] MEDS: CEFTAZIDIME 1 G in IV NS 0.9% 50 ML IV SCH (20:32)
[2017-12-16] MEDS: COLISTIMETHATE SODIUM 150 MG VIAL NEB SCH (21:02)
[2017-12-16 21:53] LABS: OCCULT BLOOD STOOL POSITIVE (NEGATIVE)
--- NOTE | 2017-12-16 22:00 | NUR ---
SKIN THERAPIST NOTE GT FEEDING HELD AND GT CLAMPED DUE TO HIGH RESIDUALS @ 200ML. HOB ELEVATED AND ON ASPIRATION PRECAUTIONS. WILL MONITOR.
[2017-12-16] MEDS: INSULIN REGULAR, HUMAN 100 UNIT/ML 3 ML VIAL SQ PRN (23:48)
[2017-12-17] VITALS (48 sets, daily range): BP systolic 96–133; BP diastolic 41–59
--- NOTE | 2017-12-17 00:30 | NUR ---
CURB MACHINE OPERATOR NOTE 50ML RESIDUALS NOTED WITH GT. GT FEEDING RESTARTED. HOB ELEVATED. WILL MONITOR.
--- NOTE | 2017-12-17 00:30 | NUR ---
SENIOR GAME ADVISOR NOTE PT NOTED WITH SEMI-FORMED BOWEL MOVEMENT. ENDORSED BY AM RN TO COLLECT FOR C-DIFF IF LOOSE. KEPT CLEAN AND DRY. TX PERFORMED ORDERED. WILL MONITOR. Addendum: 12/17/17 at 0639 by DUNG DIAZ RN THE ABOVE NOTE IS FOR ANOTHER PATIENT.
[2017-12-17] MEDS: CEFTAZIDIME 1 G in IV NS 0.9% 50 ML IV SCH ×3 (05:15→21:15)
[2017-12-17] MEDS: METOCLOPRAMIDE HCL 10 MG/2 ML VIAL IV SCH ×3 (05:16→21:15)
[2017-12-17] MEDS: BLOOD SUGAR DIAGNOSTIC 1 EACH STRIP IN SCH ×3 (05:16→17:07)
[2017-12-17 05:20] LABS: CALCIUM, SERUM 7.1 mg/dL (8.5-10.1); CARBON DIOXIDE 24 mmol/L (21-32); CHLORIDE 101 mmol/L (98-107); CREATININE 1.6 mg/dL (0.6-1.3); GLUCOSE 115 mg/dL (74-106); MAGNESIUM 2.1 mg/dL (1.8-2.4); PHOSPHORUS 7.1 mg/dL (2.5-4.9); SODIUM SERUM 135 mmol/L (136-145); UREA NITROGEN, BLOOD 54 mg/dL (7-18)
[2017-12-17 06:07] LABS: HEMATOCRIT 25 % (39-51); HEMOGLOBIN 7.9 g/dL (13.5-17.5); MEAN CORPUSCULAR HGB CONC 32 g/dl (31.0-36.0); MEAN CORPUSCULAR VOLUME 89 fL (80-96); PLATELET COUNT (AUTO) 86 /CMM (150-450); RDW COEFFICIENT OF VARIATION 19.6 (11.5-15.0); RED BLOOD CELL COUNT(AUTO) 2.76 MIL/uL (4.5-6.0); WHITE BLOOD COUNT (AUTO) 14.8 K/uL (4.3-11.0)
--- NOTE | 2017-12-17 06:46 | NUR ---
ARMHOLE SEWER NOTE PT REMAINED STABLE DURING SHIFT. NO ACUTE DISTRESS NOTED. VENT SETTINGS WELL TOLERATED. ALL NEEDS ATTENDED TO PROMPTLY. REPOSITIONED Q2H. SUCTIONED NEEDED. KEPT CLEAN AND DRY. WILL ENDORSE TO NEXT SHIFT FOR CONTINUITY OF CARE.
[2017-12-17 06:54] LABS: BAND % (MANUAL) 4 % (0.0-5.0); EOSINOPHILS % (MANUAL) 1 % (0-4); LYMPHOCYTES % (MANUAL) 13 % (16-48); MONOCYTES % (MANUAL) 6 % (0-11.0); NEUTROPHILS % (MANUAL) 76 (42-76)
--- NOTE | 2017-12-17 07:00 | NUR ---
RN NOTES RECEIVED PT ON BED, VENT/TRACH DEPENDENT, NONVERBAL, TOLERATING CURRENT VENT SETTING WELL, NO DISTRESS NOTED, ON TELE SR HR IN 90'S ,ENAMORADO DRAINING TO GRAVITY , TF GLUCERNA AT 20CC/HR RUNNING VIA GT ,CONTINUE TO MONITOR RESIDUAL , D5W WITH 40 KCL RUNNING VIA R UPPER ARM MIDLINE , SITE CLEAN , DRY AND INTACT, SR UP x3, CALL LIGHT WITHIN EASY REACH, BED LOCKED AND IN LOWEST POSITION, CONTINUE TO MONITOR CLOSELY .
[2017-12-17] MEDS: DOCUSATE SODIUM LIQ 100 MG/10 ML UDC GT SCH (08:15)
[2017-12-17] MEDS: MULTIVITAMINS,THERAGRAN 1 UDTAB TABLET GT SCH (08:16)
[2017-12-17] MEDS: FOLIC ACID 1 MG TABLET GT SCH (08:16)
[2017-12-17] MEDS: FERROUS SULFATE UDC 300 MG/5 ML UDC GT SCH (08:16)
[2017-12-17] MEDS: ASCORBIC ACID 500 MG TABLET GT SCH (08:16)
[2017-12-17] MEDS: FLUCONAZOLE (100 MG) 100 MG TABLET PO SCH (08:16)
[2017-12-17] MEDS: PANTOPRAZOLE 40 MG VIAL IV SCH (08:16)
[2017-12-17] MEDS: PYRIDOXINE HCL 50 MG TABLET GT SCH ×3 (08:16→17:07)
[2017-12-17] MEDS: LEVOTHYROXINE SODIUM 125 MCG TABLET GT SCH (08:16)
[2017-12-17] MEDS: CALCIUM CARB 250MG /VITAMIN D 1 UDTAB GT SCH (08:16)
[2017-12-17] MEDS: PROSOURCE / PROSTAT (PYXIS) 30 ML UDC GT SCH (08:17)
[2017-12-17] MEDS: BICALUTAMIDE 50 MG TABLET GT SCH (08:18)
[2017-12-17] MEDS: THERAHONEY GEL 1.5 OZ TUBE TP SCH (08:19)
[2017-12-17] MEDS: Z GUARD REMEDY 2 OZ OINT TP PRN (08:19)
[2017-12-17] MEDS: Z GUARD REMEDY 2 OZ OINT TP SCH (08:20)
[2017-12-17] MEDS: COLISTIMETHATE SODIUM 150 MG VIAL NEB SCH ×2 (10:05→20:51)
--- NOTE | 2017-12-17 12:00 | NUR ---
RN NOTES UNABLE TO INCREASE TF RATE DUE TO HIGH RESIDUAL , VSS STABLE , TRACH SECTIONING DONE CONTINUE TO MONITOR.
[2017-12-17] MEDS: Potassium Chloride 40 MEQ in IV D5W 1,000 ML IV PRN (15:18)
[2017-12-17] MEDS: SUCRALFATE 1 G/10 ML UDC GT SCH ×2 (17:07→21:15)
[2017-12-17] MEDS: GLUCERNA 1.2 1,000 ML BOTTLE GT PRN (17:35)
--- NOTE | 2017-12-17 18:00 | NUR ---
RN NOTES NO SINGICANT CHANGES NOTED ON THIS SHIFT, TF AT 20CC/HR VIA GT , ENAMORADO DRINING TO GRAVITY, SR UP x3, CALL LIGHT WITHIN EASY REACH ,BED LOCKED AND IN LOWEST POSITION, WILL ENDOSE TO SEAT COVER MAKER NURSE FOR CONTINUITY OF CARE
--- NOTE | 2017-12-17 19:36 | NUR ---
LABORER WRECKING AND SALVAGING RCD PT W/DX SEPSIS; PT IS NON VERBAL; NODS HEAD TO RESPOND. NSR ON MONITOR. PORTEX 7 W/VENT SETTINGS AC 20 550 70% +12; PT HAS THICK WHITE SECRETIONS. ENAMORADO CATHETER WITH DARK YELLOW URINE WITH SEDIMENT. MULTIPLE SKIN ISSUES WITH DRESSINGS C/D/I. GLUCERNA 1.2 @ 20 ML VIA GTUBE W/5 ML RESIDUAL; INCREASE PT TOLERATES. SUKHI MIDLINE W/D5W + 40 mEq @ 50 ML/HR. HOB ELEVATED.
[2017-12-17] MEDS ORDERED: MICAFUNGIN SODIUM 50 MG in IV NS 0.9% 100 ML IV SCH (20:00)
--- NOTE | 2017-12-17 20:21 | NUR ---
RECEIVED PT TRACHED ON VENT. NO RESP DISTRESS. PT TOLERATING VENT SETTINGS. SX'D FOR MOD AMT OF THICK PAPPAS SECRETIONS. VENT ALARMS SET AND AUDIBLE. AMBU BAG AT BEDSIDE. TRACH SECURE, CUFF ROOFING APPLICATOR. VENT PLUGGED INTO RED OUTLET. WILL CONTINUE TO MONITOR. Addendum: 12/17/17 at 2020 by TARI GLORIA RT Amended: Links added.
--- NOTE | 2017-12-17 21:00 | NUR ---
AGENTS' RECORDS CLERK MANNY LEVEL 18; HOWEVER VANCOMYCIN DCD 12/16; NO NEW ORDERS PER PHARMACY.
[2017-12-18] VITALS (47 sets, daily range): BP systolic 80–121; BP diastolic 40–59
--- NOTE | 2017-12-18 | NUR ---
HIGH SCHOOL TEACHER G TUBE RESIDUAL AT 400 ML/HR; TUBE FEEDING PLACED ON HOLD. CONTINUE TO MONITOR.
[2017-12-18] MEDS: BLOOD SUGAR DIAGNOSTIC 1 EACH STRIP IN SCH ×4 (00:58→18:27)
[2017-12-18] MEDS: INSULIN REGULAR, HUMAN 100 UNIT/ML 3 ML VIAL SQ PRN ×2 (01:07→05:51)
[2017-12-18] MEDS: METOCLOPRAMIDE HCL 10 MG/2 ML VIAL IV SCH ×3 (05:29→20:40)
[2017-12-18] MEDS: CEFTAZIDIME 1 G in IV NS 0.9% 50 ML IV SCH ×3 (05:30→20:39)
[2017-12-18 05:35] LABS: CALCIUM, SERUM 7.5 mg/dL (8.5-10.1); CARBON DIOXIDE 22 mmol/L (21-32); CHLORIDE 99 mmol/L (98-107); CREATININE 1.6 mg/dL (0.6-1.3); GLUCOSE 134 mg/dL (74-106); HEMATOCRIT 25 % (39-51); HEMOGLOBIN 7.7 g/dL (13.5-17.5); MEAN CORPUSCULAR HGB CONC 31 g/dl (31.0-36.0); MEAN CORPUSCULAR VOLUME 90 fL (80-96); PHOSPHORUS 6.9 mg/dL (2.5-4.9); PLATELET COUNT (AUTO) 96 /CMM (150-450); POTASSIUM 4.5 mmol/L (3.5-5.1); RDW COEFFICIENT OF VARIATION 19.7 (11.5-15.0); RED BLOOD CELL COUNT(AUTO) 2.74 MIL/uL (4.5-6.0); SODIUM SERUM 132 mmol/L (136-145); UREA NITROGEN, BLOOD 61 mg/dL (7-18)
--- NOTE | 2017-12-18 05:48 | NUR ---
SET UP INSPECTOR G TUBE RESIDUAL REMAINS HIGH TUBE FEEDING REMAINED OFF. CONTINUE TO MONITOR.
--- NOTE | 2017-12-18 08:01 | NUR ---
WOUND CARE CONSULT: PT SEEN FOR LEFT LATERAL THIGH OPEN BLISTER DUE TO MASSIVE EDEMA. PT HAS 4+ PITTING EDEMA WHICH IS GENERALIZED. ALL SKIN PROTECTION AND PRESSURE ULCER PREVENTION MEASURES IN PLACE AND DISCUSSED WITH NURSING STAFF. RECOMMENDATIONS MADE FOR WOUND CARE AND DISCUSSED WITH NURSING STAFF AND Sam SRINIVASAN, SURGICAL N.P. WILL SEE PRN. MILLIGAN IN AGREEMENT WITH PLAN OF CARE. Addendum: 12/18/17 at 0803 by PRISCILLA JEAN WNDNU Amended: Links added.
[2017-12-18] MEDS: Z GUARD REMEDY 2 OZ OINT TP SCH (09:00)
[2017-12-18] MEDS: FERROUS SULFATE UDC 300 MG/5 ML UDC GT SCH (09:15)
[2017-12-18] MEDS: DOCUSATE SODIUM LIQ 100 MG/10 ML UDC GT SCH (09:15)
[2017-12-18] MEDS: CALCIUM CARB 250MG /VITAMIN D 1 UDTAB GT SCH (09:15)
[2017-12-18] MEDS: MULTIVITAMINS,THERAGRAN 1 UDTAB TABLET GT SCH (09:15)
[2017-12-18] MEDS: ASCORBIC ACID 500 MG TABLET GT SCH (09:16)
[2017-12-18] MEDS: FLUCONAZOLE (100 MG) 100 MG TABLET PO SCH (09:16)
[2017-12-18] MEDS: PYRIDOXINE HCL 50 MG TABLET GT SCH ×3 (09:16→17:26)
[2017-12-18] MEDS: PANTOPRAZOLE 40 MG VIAL IV SCH (09:16)
[2017-12-18] MEDS: FOLIC ACID 1 MG TABLET GT SCH (09:16)
[2017-12-18] MEDS: BICALUTAMIDE 50 MG TABLET GT SCH (09:16)
[2017-12-18] MEDS: COLISTIMETHATE SODIUM 150 MG VIAL NEB SCH ×2 (09:17→21:43)
[2017-12-18] MEDS: SUCRALFATE 1 G/10 ML UDC GT SCH ×4 (09:19→22:00)
[2017-12-18] MEDS: LEVOTHYROXINE SODIUM 125 MCG TABLET GT SCH (09:19)
[2017-12-18] MEDS: PROSOURCE / PROSTAT (PYXIS) 30 ML UDC GT SCH (10:15)
[2017-12-18] MEDS: NEOMY SULF/BACITRAC ZN/POLY 15 GM TUBE TP SCH (12:03)
[2017-12-18] MEDS ORDERED: LORAZEPAM INJ 2 MG/ML VIAL ONE (13:43)
[2017-12-18] MEDS ORDERED: LORAZEPAM INJ 2 MG/ML VIAL IV ONE ×2 (14:00→14:20)
[2017-12-18] MEDS ORDERED: LORAZEPAM INJ 2 MG/ML VIAL IV PRN (14:00)
[2017-12-18] MEDS ORDERED: LORAZEPAM INJ 2 MG/ML VIAL IV STA (14:03)
--- NOTE | 2017-12-18 14:43 | NUR ---
PER LAKSHMI DIGGS TRAY SETTER, ABG VERBAL READBACK DONE
--- NOTE | 2017-12-18 15:00 | NUR ---
NOTIFIED DR LEÓN OF PATIENT UPDATED RESULTS SINCE EPISODE OF HYPOXIA. PER AC 28 CONTINUE FI02 100% AND PEEP 12. ORDER STAT CHEST X
[2017-12-18 15:10] LABS: HEMATOCRIT 24 % (39-51); HEMOGLOBIN 7.5 g/dL (13.5-17.5); MEAN CORPUSCULAR HGB CONC 31 g/dl (31.0-36.0); MEAN CORPUSCULAR VOLUME 90 fL (80-96); PLATELET COUNT (AUTO) 92 /CMM (150-450); RDW COEFFICIENT OF VARIATION 19.6 (11.5-15.0); RED BLOOD CELL COUNT(AUTO) 2.67 MIL/uL (4.5-6.0); WHITE BLOOD COUNT (AUTO) 17.3 K/uL (4.3-11.0)
[2017-12-18] MEDS: Potassium Chloride 40 MEQ in IV D5W 1,000 ML IV PRN (15:15)
[2017-12-18 15:20] LABS: CALCIUM, SERUM 7.1 mg/dL (8.5-10.1); CARBON DIOXIDE 21 mmol/L (21-32); CHLORIDE 100 mmol/L (98-107); CREATININE 1.7 mg/dL (0.6-1.3); GLUCOSE 85 mg/dL (74-106); POTASSIUM 4.7 mmol/L (3.5-5.1); SODIUM SERUM 134 mmol/L (136-145); UREA NITROGEN, BLOOD 60 mg/dL (7-18)
[2017-12-18 15:22] LABS: MAGNESIUM 2.1 mg/dL (1.8-2.4); PHOSPHORUS 7.4 mg/dL (2.5-4.9)
--- NOTE | 2017-12-18 15:26 | NUR ---
ativan duplication order. total ativan dose given was 4 mg IV due to seizures, theres 2 more duplicated order on MAY.
[2017-12-18 15:34] LABS: BAND % (MANUAL) 4 % (0.0-5.0); LYMPHOCYTES % (MANUAL) 2 % (16-48); MONOCYTES % (MANUAL) 12 % (0-11.0); NEUTROPHILS % (MANUAL) 82 (42-76)
[2017-12-18] MEDS: THERAHONEY GEL 1.5 OZ TUBE TP SCH (17:23)
[2017-12-18 17:31] LABS: BILIRUBIN,TOTAL 2.3 mg/dL (0.2-1.0)
--- NOTE | 2017-12-18 19:15 | NUR ---
ICU/RN RECEIVED PT ON VENT PER TRACH,SEMI-COMATOSE,PUPILS DILATED,NO RESPONSE TO VVERBAL AND TACTILE STIMULATION.ON 100% FI02,SAT.OF 100%.PT IS A DNR.
--- NOTE | 2017-12-18 20:51 | NUR ---
RECEIVED PT TRACHED ON VENT. NO RESP DISTRESS. PT TOLERATING VENT SETTINGS. SX'D FOR MOD AMT OF THICK PAPPAS SECRETIONS. VENT ALARMS SET AND AUDIBLE. AMBU BAG AT BEDSIDE. TRACH SECURE, CUFF FREELANCE DESIGNER. VENT PLUGGED INTO RED OUTLET. WILL CONTINUE TO MONITOR. Addendum: 12/18/17 at 2050 by BASSEM GRAMAJO RT Amended: Links added.
[2017-12-19] VITALS (40 sets, daily range): BP systolic 46–104; BP diastolic 36–53
--- NOTE | 2017-12-19 02:00 | NUR ---
ICU/RN RESTARTED ON TUBE FEEDING OF GLUCERNA BP STABLE ON 90'SYSTOLIC,HOB AT 45DEGREES.
[2017-12-19] MEDS: BLOOD SUGAR DIAGNOSTIC 1 EACH STRIP IN SCH ×4 (02:07→17:11)
[2017-12-19 05:01] LABS: HEMATOCRIT 23 % (39-51); HEMOGLOBIN 7.3 g/dL (13.5-17.5); MEAN CORPUSCULAR HGB CONC 33 g/dl (31.0-36.0); MEAN CORPUSCULAR VOLUME 89 fL (80-96); PLATELET COUNT (AUTO) 72 /CMM (150-450); RED BLOOD CELL COUNT(AUTO) 2.52 MIL/uL (4.5-6.0); WHITE BLOOD COUNT (AUTO) 14.9 K/uL (4.3-11.0)
[2017-12-19] MEDS: CEFTAZIDIME 1 G in IV NS 0.9% 50 ML IV SCH (05:07)
[2017-12-19] MEDS: METOCLOPRAMIDE HCL 10 MG/2 ML VIAL IV SCH ×3 (05:09→21:05)
[2017-12-19 05:37] LABS: CALCIUM, SERUM 6.8 mg/dL (8.5-10.1); CARBON DIOXIDE 20 mmol/L (21-32); CHLORIDE 100 mmol/L (98-107); CREATININE 1.6 mg/dL (0.6-1.3); GLUCOSE 90 mg/dL (74-106); MAGNESIUM 2.1 mg/dL (1.8-2.4); PHOSPHORUS 6.7 mg/dL (2.5-4.9); POTASSIUM 5.2 mmol/L (3.5-5.1); SODIUM SERUM 133 mmol/L (136-145); UREA NITROGEN, BLOOD 60 mg/dL (7-18)
[2017-12-19 05:41] LABS: BAND % (MANUAL) 4 % (0.0-5.0); LYMPHOCYTES % (MANUAL) 6 % (16-48); METAMYELOCYTES % 1 % (0-0); MONOCYTES % (MANUAL) 4 % (0-11.0); NEUTROPHILS % (MANUAL) 85 (42-76)
--- NOTE | 2017-12-19 06:55 | NUR ---
ICU/RN TUBE FEEDING HELD RESIDUAL =140.CONDITION UNCHANGED.W/ LOW URINARY OUTPUT.
--- NOTE | 2017-12-19 07:27 | NUR ---
ICU/RN REPORT AND CARE OF PT. GIVEN TO TREY ANAND
--- NOTE | 2017-12-19 07:30 | NUR ---
WAREHOUSE PICKER AM NOTES RECEIVED PT IN BED, PORTEX 7/VENT DEPENDENT, SETTING AC 28 TV 550 FIO2 70% PEEP 12, NONVERBAL, TOLERATING CURRENT VENT SETTING WELL, NO DISTRESS NOTED, ON TELE SR HR IN 90'S ,ENAMORADO DRAINING TO GRAVITY , TF GLUCERNA AT 20CC/HR PLACED ON HOLD, RESIDUAL 110 ML, CONTINUE TO MONITOR RESIDUAL , D5W WITH 40 KCL RUNNING VIA R UPPER ARM MIDLINE , SITE CLEAN , DRY AND INTACT, SEE NURSING FLOWSHEET FOR SKIN ISSUES, SR UP x3, CALL LIGHT WITHIN EASY REACH, BED LOCKED AND IN LOWEST POSITION, WILL CONTINUE TO MONITOR CLOSELY .
[2017-12-19] MEDS: LEVOTHYROXINE SODIUM 125 MCG TABLET GT SCH (08:27)
[2017-12-19] MEDS: SUCRALFATE 1 G/10 ML UDC GT SCH ×4 (08:27→21:02)
[2017-12-19] MEDS: FERROUS SULFATE UDC 300 MG/5 ML UDC GT SCH (08:38)
[2017-12-19] MEDS: DOCUSATE SODIUM LIQ 100 MG/10 ML UDC GT SCH (08:38)
[2017-12-19] MEDS: NEOMY SULF/BACITRAC ZN/POLY 15 GM TUBE TP SCH (08:39)
[2017-12-19] MEDS: PYRIDOXINE HCL 50 MG TABLET GT SCH ×3 (08:39→17:15)
[2017-12-19] MEDS: FOLIC ACID 1 MG TABLET GT SCH (08:39)
[2017-12-19] MEDS: CALCIUM CARB 250MG /VITAMIN D 1 UDTAB GT SCH (08:39)
[2017-12-19] MEDS: BICALUTAMIDE 50 MG TABLET GT SCH (08:39)
[2017-12-19] MEDS: THERAHONEY GEL 1.5 OZ TUBE TP SCH (08:39)
[2017-12-19] MEDS: MULTIVITAMINS,THERAGRAN 1 UDTAB TABLET GT SCH (08:39)
[2017-12-19] MEDS: ASCORBIC ACID 500 MG TABLET GT SCH (08:39)
[2017-12-19] MEDS: FLUCONAZOLE (100 MG) 100 MG TABLET PO SCH (08:39)
[2017-12-19] MEDS: PANTOPRAZOLE 40 MG VIAL IV SCH (08:40)
[2017-12-19] MEDS: Z GUARD REMEDY 2 OZ OINT TP SCH (08:40)
[2017-12-19] MEDS: PROSOURCE / PROSTAT (PYXIS) 30 ML UDC GT SCH (08:41)
[2017-12-19] MEDS: COLISTIMETHATE SODIUM 150 MG VIAL NEB SCH ×2 (09:19→21:17)
--- NOTE | 2017-12-19 09:30 | NUR ---
DISTILLERY MANAGER NOTES DUE MEDS GIVEN.
--- NOTE | 2017-12-19 10:15 | NUR ---
LINT CLEANER NOTES NS 500 ML BOLUS PER LAKSHMI DIGGS NP.
[2017-12-19] MEDS ORDERED: IV NS 0.9% 500 ML IV ONE (11:00)
--- NOTE | 2017-12-19 11:27 | NUR ---
RN NOTES FIO2 NOW AT 65%
[2017-12-19 12:21] LABS: CALCIUM, SERUM 7.4 mg/dL (8.5-10.1); CARBON DIOXIDE 21 mmol/L (21-32); CHLORIDE 97 mmol/L (98-107); CREATININE 1.8 mg/dL (0.6-1.3); GLUCOSE 100 mg/dL (74-106); POTASSIUM 5.2 mmol/L (3.5-5.1); SODIUM SERUM 131 mmol/L (136-145); UREA NITROGEN, BLOOD 63 mg/dL (7-18)
[2017-12-19] MEDS: CEFTAZIDIME 1 G in IV D5W 50 ML IV SCH ×2 (13:28→21:05)
[2017-12-19 14:12] LABS: ABG BASE EXCESS -12.3 mmol/L; ABG OXYGEN SATURATION 97.9 % (92.0-98.5); ABG PCO2 59.1 mmHg (35.0-45.0); ABG PH 7.082 (7.350-7.450); ABG PO2 148.2 mmHg (75.0-100.0); AaDO2 505.7 mmHg; COHb 0.3 % (0.5-1.5); MetHb 1.1 % (0.0-1.5); O2Hb 96.5 % (94.0-97.0); PEEP,BG 12 cm H2O; SITE, ABG Left Radial; VT, ABG 650 mL
[2017-12-19 14:12] LABS: ABG BASE EXCESS -5.5 mmol/L; ABG OXYGEN SATURATION 90.4 % (92.0-98.5); ABG PCO2 55.5 mmHg (35.0-45.0); ABG PO2 67.2 mmHg (75.0-100.0); AaDO2 299.6 mmHg; COHb 0.3 % (0.5-1.5); MetHb 0.7 % (0.0-1.5); O2Hb 89.5 % (94.0-97.0); SITE, ABG Left Radial
[2017-12-19] MEDS: IV D5/0.45 NACL 1,000 ML IV PRN (14:28)
--- NOTE | 2017-12-19 15:25 | NUR ---
BENZOL STILL OPERATOR NOTES SPOKE WITH CASE MANAGEMENT ANA LUND, PER HER, PT'S SON GERRI CHANGED HIS MIND AGAIN TO DO HOSPICE. PATIENT ALREADY BEEN EVALUATED BY DEDICATED HOSPICE EARLIER. PER CASE MANAGEMENT, LAKSHMI CARPENTER WILL TALK TO PT'S SON AGAIN.
[2017-12-19 15:58] LABS: ABG BASE EXCESS -8.5 mmol/L; ABG OXYGEN SATURATION 92.9 % (92.0-98.5); ABG PCO2 49.3 mmHg (35.0-45.0); ABG PH 7.204 (7.350-7.450); ABG PO2 78.8 mmHg (75.0-100.0); COHb 0.3 % (0.5-1.5); O2Hb 91.7 % (94.0-97.0); SITE, ABG Right Radial; VENT MODE, BG AC 28 550 +12 65%
--- NOTE | 2017-12-19 18:25 | NUR ---
ELECTRICAL APPLIANCE PREPARER CLOSING NOTES PT RESTING IN BED, PORTEX 7/VENT DEPENDENT, SETTING AC 28 TV 600 FIO2 65% PEEP 12, NONVERBAL, TOLERATING CURRENT VENT SETTING WELL, NO DISTRESS NOTED, ON TELE SR HR IN 90'S ,ENAMORADO DRAINING TO GRAVITY , TF GLUCERNA AT 20CC/HR PLACED ON HOLD, RESIDUAL 200 ML, CONTINUE TO MONITOR RESIDUAL , D5 1/2 NS AT 50 ML/HR RUNNING VIA R UPPER ARM MIDLINE , SITE CLEAN , DRY AND INTACT, SR UP x3, CALL LIGHT WITHIN EASY REACH, BED LOCKED AND IN LOWEST POSITION, PM CARE DONE, TURNED AND REPOSITIONED Q 2HOURS. BP FLUCTUATES SBP 80S DBP 40S. AWARE. WILL ENDORSE TO NEXT SHIFT FOR JESSE.
--- NOTE | 2017-12-19 19:30 | NUR ---
RECEIVED PT TRACHED PORTEX 7 ON VENT WITH NOTED SETTINGS OF AC 28 ,600,PEEP 12, 65%. PT TOLERATING VENT SETTINGS. PT RESPONDS TO STIMULI WHEN SUCTIONED , NON VERBAL. SUCTIONED MODERATE AMOUNT OF THICK YELLOW SECRETIONS. VENT ALARMS SET AND AUDIBLE. TRACH PATENT AND SECURED, CUFF HYDROLOGY TEACHER. VENT PLUGGED INTO RED OUTLET. NO RESPIRATORY DISTRESS NOTED AT THIS TIME. WILL CONTINUE TO MONITOR.
--- NOTE | 2017-12-19 20:00 | NUR ---
TECHNOLOGY TRAINER RCD PT W/DX SEPSIS, PNA, UTI; PT IS OBTUNDED REACTS ONLY TO PAINFUL STIMULI; NSR ON MONITOR. PORTEX 7 W/VENT SETTINGS AC 28 600 65% +12; W/THICK BLOODY SECRETIONS. PROVIDED ORAL CARE AND REPOSITIONED PT. G TUBE CLAMPED D/T HIGH RESIDUAL. ENAMORADO CATHETER WITH SMALL AMOUNT OF CLOUDY URINE NOTED. DRESSING C/D/I. D5 1/2 NS @ 75 ML/HR VIA SUKHI MIDLINE; MIDLINE PATENT W/GOOD BLOOD RETURN. PT DNR STATUS AT THIS TIME.
[2017-12-19] MEDS ORDERED: DIATR MEGLU/DIATRIZOATE SODIUM 30 ML BOTTLE (GASTROGRAPHIN) ONE (20:21)
--- NOTE | 2017-12-19 20:29 | NUR ---
STAFF PHARMACIST HOSPITAL SLICE CUTTING MACHINE OPERATOR AT BEDSIDE FOR KUB. ADMINISTERED GASTROGRAFFIN.
[2017-12-20] VITALS (66 sets, daily range): BP systolic 49–132; BP diastolic 25–66
[2017-12-20] MEDS: BLOOD SUGAR DIAGNOSTIC 1 EACH STRIP IN SCH ×4 (00:02→17:30)
[2017-12-20] MEDS: CEFTAZIDIME 1 G in IV D5W 50 ML IV SCH ×3 (05:03→20:27)
[2017-12-20] MEDS: IV D5/0.45 NACL 1,000 ML IV PRN (05:03)
[2017-12-20] MEDS: METOCLOPRAMIDE HCL 10 MG/2 ML VIAL IV SCH ×3 (05:03→20:27)
[2017-12-20 05:36] LABS: BASOPHILS # (AUTO) 0.1 /CMM (0.0-0.2); BASOPHILS % (AUTO) 0.7 % (0.0-2.0); EOSINOPHILS % (AUTO) 0.5 % (0.0-6.0); HEMATOCRIT 22 % (39-51); LYMPHOCYTES # (AUTO) 3.7 /CMM (0.8-4.8); MEAN CORPUSCULAR HGB CONC 32 g/dl (31.0-36.0); MEAN CORPUSCULAR VOLUME 90 fL (80-96); MONOCYTES # (AUTO) 0.5 /CMM (0.1-1.30); MONOCYTES % (AUTO) 3.5 % (2.0-12.0); NEUTROPHILS # (AUTO) 10.5 /CMM (1.8-8.9); NEUTROPHILS % (AUTO) 70.3 % (43.0-81.0); PLATELET COUNT (AUTO) 54 /CMM (150-450); WHITE BLOOD COUNT (AUTO) 14.9 K/uL (4.3-11.0)
[2017-12-20 05:47] LABS: CALCIUM, SERUM 7.3 mg/dL (8.5-10.1); CARBON DIOXIDE 19 mmol/L (21-32); CHLORIDE 99 mmol/L (98-107); CREATININE 1.9 mg/dL (0.6-1.3); GLUCOSE 99 mg/dL (74-106); MAGNESIUM 2.1 mg/dL (1.8-2.4); PHOSPHORUS 6.9 mg/dL (2.5-4.9); POTASSIUM 5.2 mmol/L (3.5-5.1); SODIUM SERUM 132 mmol/L (136-145); UREA NITROGEN, BLOOD 62 mg/dL (7-18)
[2017-12-20 05:56] LABS: HEMOGLOBIN 6.9 g/dL (13.5-17.5)
--- NOTE | 2017-12-20 06:00 | NUR ---
STEWARD RACETRACK CALL PLACED TO Bakari PEREZ COMBINE DRIVER REGARDING HG 6.9; AWAITING CALL BACK.
[2017-12-20 06:15] LABS: LYMPHOCYTES % (MANUAL) 8 % (16-48); MONOCYTES % (MANUAL) 5 % (0-11.0); NEUTROPHILS % (MANUAL) 87 (42-76)
--- NOTE | 2017-12-20 07:22 | NUR ---
ICU/RN: Received phone call from Josiah Brantley NP for Evelio Mehta NP regarding critical H/H result; per ROLLWAY WORKER "Hold off any transfusions, I will speak with family."
--- NOTE | 2017-12-20 07:30 | NUR ---
ICU/RN: Pt received in bed, eyes closed, breathing even and unlabored, airway cleared of secretions. HOB flat dt labile BP. Pt withdraws to painful stimuli, no gag/cough reflex. FC draining minimal cloudy, yellow urine. SR on monitor. Alarm sounds audible. Will cont to monitor pt.
[2017-12-20] MEDS: SUCRALFATE 1 G/10 ML UDC GT SCH ×4 (08:09→21:16)
[2017-12-20] MEDS: FERROUS SULFATE UDC 300 MG/5 ML UDC GT SCH (08:09)
[2017-12-20] MEDS: ASCORBIC ACID 500 MG TABLET GT SCH (08:09)
[2017-12-20] MEDS: FLUCONAZOLE (100 MG) 100 MG TABLET PO SCH (08:09)
[2017-12-20] MEDS: PANTOPRAZOLE 40 MG VIAL IV SCH (08:09)
[2017-12-20] MEDS: CALCIUM CARB 250MG /VITAMIN D 1 UDTAB GT SCH (08:09)
[2017-12-20] MEDS: PYRIDOXINE HCL 50 MG TABLET GT SCH ×3 (08:10→16:34)
[2017-12-20] MEDS: MULTIVITAMINS,THERAGRAN 1 UDTAB TABLET GT SCH (08:10)
[2017-12-20] MEDS: BICALUTAMIDE 50 MG TABLET GT SCH (08:10)
[2017-12-20] MEDS: PROSOURCE / PROSTAT (PYXIS) 30 ML UDC GT SCH (08:11)
[2017-12-20] MEDS: LEVOTHYROXINE SODIUM 125 MCG TABLET GT SCH (08:13)
[2017-12-20] MEDS: FOLIC ACID 1 MG TABLET GT SCH (08:13)
[2017-12-20] MEDS: NEOMY SULF/BACITRAC ZN/POLY 15 GM TUBE TP SCH (08:14)
--- NOTE | 2017-12-20 08:15 | NUR ---
ICU/RN: Pt hypothermic with rectal temp at 92.1F; Vj-Hugger applied. Will reassess effectiveness. Noted incontinent of soft yellow stool, hygienic and wound care rendered. SBP with 20-30mmHg drop from baseline with turning and repositioning. Josiah Brantley NP and Dr Foote notified.
[2017-12-20] MEDS: Z GUARD REMEDY 2 OZ OINT TP SCH (08:16)
[2017-12-20] MEDS: THERAHONEY GEL 1.5 OZ TUBE TP SCH (08:21)
[2017-12-20] MEDS: DOCUSATE SODIUM LIQ 100 MG/10 ML UDC GT SCH (08:57)
[2017-12-20] MEDS: COLISTIMETHATE SODIUM 150 MG VIAL NEB SCH ×2 (10:30→21:13)
[2017-12-20] MEDS ORDERED: NOREPINEPHRINE 8 MG in IV D5W 500 ML IV PRN (11:00)
[2017-12-20] MEDS ORDERED: IV NS 0.9% 500 ML BAG IV ONE (11:00)
--- NOTE | 2017-12-20 12:05 | NUR ---
ICU/RN Dr Douglas mcdonald; updated on pt status. Informed of 500cc NS bolus x1 given for hypotension. Current SBP in 90's, remains labile.
--- NOTE | 2017-12-20 12:30 | NUR ---
ICU/RN: Josiah mcdonald; updated on pt status. Abn labs reviewed, no active bleeding. Per CURVE SAW OPERATOR, hold off blood transfusion for now. Aware of orders for additional 1L NS bolus. Per CURVE SAW OPERATOR, maintain SBP >80mmHg, Levophed as needed to maintain BP within parameters, hold TF.
[2017-12-20] MEDS ORDERED: IV NS 0.9% 1,000 ML BAG IV ONE (13:00)
--- NOTE | 2017-12-20 17:00 | NUR ---
ICU/RN: Noted with yellow, liquid stool. Wound care rendered. Kept clean and dry. Will cont to monitor pt.
--- NOTE | 2017-12-20 18:34 | NUR ---
ICU/RN: 1.5L IV NS BOLUS NOT REFLECTED IN IV SPREADSHEET; ENTERED IN INTAKE AND OUTPUT SPREADSHEET Addendum: 12/20/17 at 1835 by ADRIANA VELEZ RN Amended: Links added.
--- NOTE | 2017-12-20 18:45 | NUR ---
ICU/RN: Dr Lauren rounds; updated on pt status. Informed of H/H, and informed MD that Josiah Ayalanez will discuss goal of care with family and said to hold off transfusion. Per MD, "I'll defer to primary then." melt down furnace operator aware.
--- NOTE | 2017-12-20 20:00 | NUR ---
ASSOCIATE APPLICATION DEVELOPER NOTES RECEIVED PT IN BED, OBTUNDED, ABSENT GAG REFLEX, PIN POINT PUPILS. MINIMALLY WITHDRAWS TO DEEP PAIN ONLY. TELE READS SR AT 80 BPM. ON VENT VIA [place] 7 AC28, TV 600, FIO2 65%, PEEP 12, TOLERATING WELL. GT IN PLACE, CLAMPED, GASTRIC RESIDUAL OF 450 ML, YELLOW COLORED. IV SITE AT RIGHT UPPER ARM, 18G MIDLINE, PATENT, RUNNING D5 1/2NS AT 75 ML/HR. E[place] CATH IN PLACE, MINIMAL URINE OUTPUT, CLOUDY BROWN COLORED. WOUNDS AT SACRUM, PENILE, PERINEAL AND LEFT THIGH. HOB FLAT, SIDE RAILS X3, AIR MATTRESS IN PLACE, LEGS ELEVATED, ON DROPLET ISOLATION.
--- NOTE | 2017-12-20 20:15 | NUR ---
RECIPROCATING DRILL OPERATOR NOTES GASTRIC RESIDUAL AT 450 ML. ONLY 200 ML REPLACED INTO GT TO MONITOR LEVELS.
--- NOTE | 2017-12-20 20:16 | NUR ---
RT PT RECEIVED TRACHED ON [facility] VENT ON CHARTED ORDERS. AIRWAY PATENT AND SECURED. PT SUCTIONED SMALL AMOUNT OF WHITE AND CLEAR SECRETIONS. ALARMS SET AND AUDIBLE. AMBUBAG AND BACK UP TRACH AT BEDSIDE. VENT CONNECTED TO RED OUTLET. Addendum: 12/20/17 at 2018 by ALEXANDREA KEITH RT Amended: Links added.
[2017-12-20] MEDS: DEXTROSE 50%-WATER 50 ML DISP.SYRIN IV PRN (21:21)
--- NOTE | 2017-12-20 22:00 | NUR ---
BACK UP WORKER NOTES 2119 PATIENT NOTED WITH BLOOD GLUCOSE OF 35 MG/DL. D50 GIVEN. 2199 PATENT'S BLOOD GLUCOSE RECHECKED. CURRENTLY 115 MG/DL.
--- NOTE | 2017-12-20 22:30 | NUR ---
FRAMER NOTES PATIENT'S SBP DROPPING BELOW 80 AND SUSTAINING. STANDBY PRESSOR STARTED, LEVO AT 2 MCG/MIN. INCREASED TO 10 MCG/MIN TO MAINTAIN SBP >80.
[2017-12-20] MEDS: NOREPINEPHRINE 8 MG in IV D5W 500 ML IV PRN (22:32)
--- NOTE | 2017-12-20 23:00 | NUR ---
AVIONICS INSTALLER NOTES PATIENT HAS BECOME HYPOTHERMIC, TEMP DROPPING TO 94-95 F, MAGALYS HUGGER PLACED ON PATIENT.
[2017-12-21] VITALS (43 sets, daily range): BP systolic 75–102; BP diastolic 33–48
[2017-12-21] MEDS: BLOOD SUGAR DIAGNOSTIC 1 EACH STRIP IN SCH ×3 (00:03→11:05)
[2017-12-21] MEDS: IV D5/0.45 NACL 1,000 ML IV PRN (00:10)
--- NOTE | 2017-12-21 03:00 | NUR ---
RETAIL DEPARTMENT RESET NOTES PATIENT'S TEMP HOLDING STEADY IN THE 97s. STOPPED MAGALYS HUGGER. KEPT COVERED WITH BLANKET.
--- NOTE | 2017-12-21 04:00 | NUR ---
FRAME FEEDER NOTES PATIENT GIVEN BED BATH, TOLERATED FAIRLY WELL. GASTRIC RESIDUAL REMAINS AT 200 ML. WILL DISCARD THE REMAINING 250 ML, THAT WAS REMOVED EARLIER IN THE SHIFT.
[2017-12-21] MEDS: CEFTAZIDIME 1 G in IV D5W 50 ML IV SCH (05:17)
[2017-12-21] MEDS: METOCLOPRAMIDE HCL 10 MG/2 ML VIAL IV SCH ×2 (05:17→13:00)
[2017-12-21] MEDS: DEXTROSE 50%-WATER 50 ML DISP.SYRIN IV PRN (05:23)
[2017-12-21 05:26] LABS: EOSINOPHILS % (AUTO) 0.2 % (0.0-6.0); HEMATOCRIT 21 % (39-51); LYMPHOCYTES # (AUTO) 0.9 /CMM (0.8-4.8); LYMPHOCYTES % (AUTO) 4.4 % (20.0-44.0); MEAN CORPUSCULAR HGB CONC 30 g/dl (31.0-36.0); MEAN CORPUSCULAR VOLUME 94 fL (80-96); MONOCYTES # (AUTO) 0.3 /CMM (0.1-1.30); MONOCYTES % (AUTO) 1.3 % (2.0-12.0); NEUTROPHILS # (AUTO) 18.5 /CMM (1.8-8.9); NEUTROPHILS % (AUTO) 94.1 % (43.0-81.0); RED BLOOD CELL COUNT(AUTO) 2.22 MIL/uL (4.5-6.0); WHITE BLOOD COUNT (AUTO) 19.7 K/uL (4.3-11.0)
[2017-12-21 05:37] LABS: HEMOGLOBIN 6.3 g/dL (13.5-17.5); PLATELET COUNT (AUTO) 48 /CMM (150-450)
[2017-12-21 05:40] LABS: CALCIUM, SERUM 6.4 mg/dL (8.5-10.1); CARBON DIOXIDE 12 mmol/L (21-32); CHLORIDE 96 mmol/L (98-107); CREATININE 2.1 mg/dL (0.6-1.3); POTASSIUM 4.8 mmol/L (3.5-5.1); SODIUM SERUM 124 mmol/L (136-145); UREA NITROGEN, BLOOD 56 mg/dL (7-18)
[2017-12-21 05:57] LABS: GLUCOSE 505 mg/dL (74-106)
[2017-12-21 06:16] LABS: BAND % (MANUAL) 27 % (0.0-5.0); LYMPHOCYTES % (MANUAL) 10 % (16-48); METAMYELOCYTES % 3 % (0-0); MONOCYTES % (MANUAL) 2 % (0-11.0); MYELOCYTES % 3 % (0-0); NEUTROPHILS % (MANUAL) 53 (42-76); REACTIVE LYMPHOCYTES 2 % (0-0)
--- NOTE | 2017-12-21 06:32 | NUR ---
TRAFFIC MANAGER NOTES CONTACTED AMY PEREZ TO REPORT CRITICAL LAB VALUES: H/H 6.3/20.9, PLATELET 48. NEW ORDER RECEIVED FOR 1 UNIT OF PRBC. WILL ORDER ANOTHER TYPE AND SCREEN SINCE LAST ONE WAS >3 DAYS AGO.
[2017-12-21] MEDS: NOREPINEPHRINE 8 MG in IV D5W 500 ML IV PRN (07:32)
--- NOTE | 2017-12-21 07:52 | NUR ---
Male trach pt received on a mechanical vent. Pt portex 7 trach is secure. Suctioned small amount of yellow secretions. Vent is plugged into a red outlet, alarms are set and audible, and BMV is at bedside. Addendum: 12/21/17 at 0753 by ALONZO ANAND RT Amended: Links added.
[2017-12-21] MEDS: FLUCONAZOLE (100 MG) 100 MG TABLET PO SCH (08:06)
[2017-12-21] MEDS: PYRIDOXINE HCL 50 MG TABLET GT SCH ×2 (08:07→13:00)
[2017-12-21] MEDS: FERROUS SULFATE UDC 300 MG/5 ML UDC GT SCH (08:07)
[2017-12-21] MEDS: ASCORBIC ACID 500 MG TABLET GT SCH (08:07)
[2017-12-21] MEDS: MULTIVITAMINS,THERAGRAN 1 UDTAB TABLET GT SCH (08:07)
[2017-12-21] MEDS: BICALUTAMIDE 50 MG TABLET GT SCH (08:07)
[2017-12-21] MEDS: CALCIUM CARB 250MG /VITAMIN D 1 UDTAB GT SCH (08:07)
[2017-12-21] MEDS: DOCUSATE SODIUM LIQ 100 MG/10 ML UDC GT SCH (08:07)
[2017-12-21] MEDS: SUCRALFATE 1 G/10 ML UDC GT SCH ×2 (08:07→11:05)
[2017-12-21] MEDS: Z GUARD REMEDY 2 OZ OINT TP SCH (08:08)
[2017-12-21] MEDS: PROSOURCE / PROSTAT (PYXIS) 30 ML UDC GT SCH (08:08)
[2017-12-21] MEDS: NEOMY SULF/BACITRAC ZN/POLY 15 GM TUBE TP SCH (08:09)
[2017-12-21] MEDS: LEVOTHYROXINE SODIUM 125 MCG TABLET GT SCH (08:11)
[2017-12-21] MEDS: PANTOPRAZOLE 40 MG VIAL IV SCH (08:11)
[2017-12-21] MEDS: FOLIC ACID 1 MG TABLET GT SCH (08:11)
--- NOTE | 2017-12-21 09:20 | NUR ---
ICU/RN: Dr Foote rounds; updated on pt status. ABG's and labs reviewed. New orders noted and carried out.
[2017-12-21 09:29] LABS: ABG PCO2 45.7 mmHg (35.0-45.0); ABG PH 6.921 (7.350-7.450); ABG PO2 66.8 mmHg (75.0-100.0); COHb 0.3 % (0.5-1.5); MetHb 2.1 % (0.0-1.5); SITE, ABG Right Radial; VENT MODE, BG AC 28 600 65% +12
[2017-12-21] MEDS: COLISTIMETHATE SODIUM 150 MG VIAL NEB SCH (09:47)
--- NOTE | 2017-12-21 10:00 | NUR ---
ICU/RN: Spoke with Darin, son after repeated phone calls. Informed of grave condition of pt. Per son, "I will try and come in to see him today."
[2017-12-21] MEDS: THERAHONEY GEL 1.5 OZ TUBE TP SCH (10:01)
--- NOTE | 2017-12-21 11:20 | NUR ---
ICU/RN: Dr Jeter at bedside, updated on pt status, current labs reviewed. New orders noted and carried out.
[2017-12-21] MEDS ORDERED: IV D5/ 0.9% NACL 1,000 ML IV PRN (11:30)
[2017-12-21] MEDS ORDERED: MORPHINE SULFATE PF DRIP 250 MG in IV D5W 240 ML IV PRN (14:30)
[2017-12-21] MEDS ORDERED: SCOPOLAMINE HBR 1 EA PATCH.TD72 TD SCH (14:30)
[2017-12-21] MEDS ORDERED: GLYCOPYRROLATE 0.2 MG/ML VIAL IV PRN (14:30)
[2017-12-21] MEDS ORDERED: LORAZEPAM INJ 2 MG/ML VIAL IV PRN (14:30)
--- NOTE | 2017-12-21 15:26 | NUR ---
ICU/RN: Pt pronounced by Shanthi Barajas, MELISSA. Absent of corneal, gag, cough reflex. No spontaneous breaths off the ventilator, no palpable pulses, asystole on monitor. Darin, son at bedside. channeling machine operator, nsg sup aware. [employer] # [id number]
[2017-12-21] MEDS ORDERED: MORPHINE SULFATE INJ 2 MG/ML DISP.SYRIN IV ONE (15:30)
[2017-12-22] MEDS ORDERED: CEFTAZIDIME 1 G in IV D5W 50 ML IV SCH (05:00)
== END 2017-12-21 15:26 | disposition expired | DRG 870 ==
LOC: ER 12:13 → TELE 15:35 → TELE1 12-07 11:42 → TELE-TD 12-07 11:56 → TELE1 12-09 13:18 → ICU 12-12 16:59
PROVIDERS: ADMIT Nurse Practitioner Acute Care; ATTEND Nurse Practitioner Acute Care
PROC: 5A1955Z Respiratory Ventilation, Greater than 96 Consecutive Hours (ICD-10-PCS; principal; 2017-12-04)
PROC: 30233N1 Transfusion of Nonautologous Red Blood Cells into Peripheral Vein, Percutaneous Approach (ICD-10-PCS; 2017-12-09)
PROC: 05H533Z Insertion of Infusion Device into Right Subclavian Vein, Percutaneous Approach (ICD-10-PCS; 2017-12-13)
PROC: B546ZZA Ultrasonography of Right Subclavian Vein, Guidance (ICD-10-PCS; 2017-12-13)
DX: A41.9 Sepsis, unspecified organism (principal); L89.154 Pressure ulcer of sacral region, stage 4; Z66 Do not resuscitate; Z51.5 Encounter for palliative care; J15.6 Pneumonia due to other Gram-negative bacteria; G93.41 Metabolic encephalopathy; E43 Unspecified severe protein-calorie malnutrition; R53.2 Functional quadriplegia; N17.0 Acute kidney failure with tubular necrosis; I50.33 Acute on chronic diastolic (congestive) heart failure; J96.21 Acute and chronic respiratory failure with hypoxia; J96.22 Acute and chronic respiratory failure with hypercapnia; R65.21 Severe sepsis with septic shock; D68.59 Other primary thrombophilia; J96.10 Chronic respiratory failure, unspecified whether with hypoxia or hypercapnia; I13.0 Hypertensive heart and chronic kidney disease with heart failure and stage 1 through stage 4 chronic kidney disease, or unspecified chronic kidney disease; Z99.11 Dependence on respirator [ventilator] status; E87.2 Acidosis; C78.7 Secondary malignant neoplasm of liver and intrahepatic bile duct; E87.0 Hyperosmolality and hypernatremia; E87.1 Hypo-osmolality and hyponatremia; R18.8 Other ascites; K92.2 Gastrointestinal hemorrhage, unspecified; K56.7 Ileus, unspecified; I47.2 Ventricular tachycardia; J90 Pleural effusion, not elsewhere classified; Z93.1 Gastrostomy status; Z93.0 Tracheostomy status; Z92.21 Personal history of antineoplastic chemotherapy; R13.10 Dysphagia, unspecified; N18.3 Chronic kidney disease, stage 3 (moderate); Z87.01 Personal history of pneumonia (recurrent); E11.22 Type 2 diabetes mellitus with diabetic chronic kidney disease; E03.9 Hypothyroidism, unspecified; F10.20 Alcohol dependence, uncomplicated; Z88.8 Allergy status to other drugs, medicaments and biological substances; C61 Malignant neoplasm of prostate; E87.6 Hypokalemia; N40.0 Benign prostatic hyperplasia without lower urinary tract symptoms; S31.20XA Unspecified open wound of penis, initial encounter; X58.XXXA Exposure to other specified factors, initial encounter; Y92.9 Unspecified place or not applicable; T50.2X5A Adverse effect of carbonic-anhydrase inhibitors, benzothiadiazides and other diuretics, initial encounter; G40.409 Other generalized epilepsy and epileptic syndromes, not intractable, without status epilepticus; B37.9 Candidiasis, unspecified; E87.5 Hyperkalemia; E86.1 Hypovolemia
CPT/HCPCS: 31720; 36415; 36569; 36600; 71045-TC; 74018; 76700-TC; 80048-TC; 80076-TC; 80202-TC; 81000-TC; 82247-TC; 82248-TC; 82272-TC; 82728-TC; 82803-TC; 82947-TC; 82962-TC; 83540-TC; 83605-TC; 83735-TC; 83880; 84100-TC; 84439-TC; 84443-TC; 84484-TC; 85025-TC; 85730-TC; 86850-TC; 86921-TC; 87040-TC; 87070-TC; 87081-TC; 87086-TC; 87186-TC; 93307-TC; 94002-TC; 94003-TC; 94760-TC; 94762-TC; 99082-TC; A4216; A4606; A4623; A6253; A6402; A6403; C9113; G0378; J0713; J0770; J1815; J2060; J2185; J2248; J2274; J2765; J3370; J3475; J3480; J3490; J7030; J7040; J7042; J7050; J7060; J7070; P9016-BL; Q9963; Z7610